=== PATIENT | female | born 1935 | race Caucasian/White ===

== ENCOUNTER 2019-07-04 14:05 | Inpatient (IN) ==
--- NOTE | 2019-07-04 14:22 | CT Scan Report ---
HEAD CT NONCONTRAST CT DOSE: 1074.96 mGy.cm HISTORY: Aphasia. Confusion. Stroke evaluation TECHNIQUE: Multiaxial CT images of the head were performed without the use of intravenous contrast. A utomated exposure control was utilized for this study. A dose lowering technique was utilized adheri ng to the principles of ALARA. Comparison: None. Findings: The paranasal sinuses and mastoid air cells are clear. The calvarium and skull base are int act. There is no mass, hematoma, midline shift, acute infarct. White matter hypodensity is nonspecifi c but suggestive of microvascular ischemic change. The ventricles and sulci demonstrate mild age-rela saurabh involutional changes. Encephalomalacia seen within the right frontotemporal and parietal regions consistent with an old MCA territory infarct. Impression: 1. No acute intracranial abnormality. 2. Old right MCA territory infarct. ACT 112: Negative or not required by law. Electronically signed by: Cesar Noland M.D. 07/04/2019 2:21 PM
--- NOTE | 2019-07-04 14:31 | Emergency Department Note ---
History of Present Illness General Chief complaint: Stroke Alert Time Seen by Provider: 07/04/19 14:09 History of Present Illness Provider complaint: Altered mental status Onset (ago): hour(s) 3 Location: head 84-year-old female presents via [facility] from home for altered mental status. Per [facility], the patient lives at home with her twin sister and his 24-hour assisted living care. At 1150 it was noticed that she is having difficulty speaking and was more confused. Code stroke was called from the field. Patient does have a history of stroke approximately 4 months ago. She is on Eliquis. Home Medications Home Medications Medication Instructions Recorded Confirmed Type apixaban [Eliquis] 2.5 mg PO BID 07/04/19 07/04/19 History aspirin 81 mg PO QAM 07/04/19 07/04/19 History losartan 50 mg PO BID 07/04/19 07/04/19 History metoprolol tartrate 25 mg PO BID 07/04/19 07/04/19 History timolol maleate 1 drp OPB QA 07/04/19 07/04/19 History Allergies Allergy/AdvReac Type Severity Reaction Status Date / Time No Known Allergies Allergy Unverified 07/04/19 15:23 Past Med/Surg History Medical History (Updated 07/04/19 @ 15:42 by Zach Whitman) Broken arm CVA (cerebral vascular accident) HLD (hyperlipidemia) HTN (hypertension) Social History Feels Safe at Home: Yes Smoking Status: Unknown if ever smoked Review of Systems Unobtainable due to cognitive status Physical Exam Vital Signs Vital Signs - 24 hr 07/04/19 14:09 07/04/19 14:18 07/04/19 14:23 Temperature 37.0 C Temperature Source Rectal Pulse Rate 65 68 68 Pulse Rate from SpO2 Sensor 68 67 Respiratory Rate 24 24 21 Respiratory Effort / Characteristics Non-Labored Spontaneous Respiratory Depth Normal Respiratory Pattern Regular Blood Pressure 187/98 H 161/129 H Blood Pressure Mean 127 151 Blood Pressure Position Sitting Pulse Oximetry 95 96 97 Oxygen Delivery Method Room Air Nasal Cannula Nasal Cannula Oxygen Flow Rate 3 3 3 Sepsis Recent Fever Within 48 Hours No Sepsis New/Unexplained Change in Mental Status No Sepsis Action Taken by Nursing No Action Required 07/04/19 14:27 07/04/19 14:30 07/04/19 14:31 Temperature Temperature Source Pulse Rate 64 70 66 Pulse Rate from SpO2 Sensor 64 66 Respiratory Rate 23 22 26 H Respiratory Effort / Characteristics Respiratory Depth Respiratory Pattern Blood Pressure 182/89 H 176/96 H Blood Pressure Mean 112 119 Blood Pressure Position Pulse Oximetry 95 Oxygen Delivery Method Room Air Oxygen Flow Rate Sepsis Recent Fever Within 48 Hours Sepsis New/Unexplained Change in Mental Status Sepsis Action Taken by Nursing 07/04/19 14:40 07/04/19 14:46 07/04/19 15:10 Temperature Temperature Source Pulse Rate 66 63 66 Pulse Rate from SpO2 Sensor 67 64 Respiratory Rate 23 39 H 33 H Respiratory Effort / Characteristics Respiratory Depth Respiratory Pattern Blood Pressure 176/88 H Blood Pressure Mean 116 Blood Pressure Position Pulse Oximetry 93 97 Oxygen Delivery Method Room Air Room Air Room Air Oxygen Flow Rate Sepsis Recent Fever Within 48 Hours Sepsis New/Unexplained Change in Mental Status Sepsis Action Taken by Nursing 07/04/19 15:12 07/04/19 15:15 07/04/19 15:16 Temperature Temperature Source Pulse Rate 63 61 Pulse Rate from SpO2 Sensor 61 Respiratory Rate 41 H 27 H Respiratory Effort / Characteristics Respiratory Depth Respiratory Pattern Blood Pressure 153/82 H 176/78 H Blood Pressure Mean 99 93 Blood Pressure Position Pulse Oximetry 99 Oxygen Delivery Method Room Air Nasal Cannula Nasal Cannula Oxygen Flow Rate 3 3 Sepsis Recent Fever Within 48 Hours Sepsis New/Unexplained Change in Mental Status Sepsis Action Taken by Nursing Physical Exam EYES: Conjunctivae and EOM are normal. Pupils are equal, round, and reactive to light. Right eye exhibits no discharge. Left eye exhibits no discharge. No scleral icterus. NECK: Normal range of motion. Neck supple. No JVD present. CV: Normal rate, regular rhythm, normal heart sounds and intact distal pulses. There is no peripheral edema. Palpable radial pulses bue. PULM/CHEST: Rhonchi bilaterally. -Chest Wall: She exhibits no tenderness. ABD: The abdomen is soft. Bowel sounds are normal. She has no distension. No mass is present. There is no tenderness. There is no rebound, no guarding, no Levine's sign and no tenderness at McBurney's point. Rovsig negative MUSC/SKEL: Left upper extremity is in sling. NEURO: Patient is having intermittent expressive aphasia but then in intermi ttently starts making nonsensical conversation. No facial droop. Patient is unable to follow commands. Course Course 1415: The patient was evaluated in room B1. Patient was seen on the helicopter pad immediately after departing the helicopter. Patient was taken immediately CAT scan and stroke protocol was initiated. CT of the head viewed by me did not show any large intracerebral hemorrhage. Patient is not a TPA candidate given she is on Eliquis and her recent stroke. Discussed the findings with Susi tele-stroke and I explained to them that I think her symptoms could be more of an infectious/metabolic syndrome for her altered mental status. The patient has a note from family requesting that her sodium be checked. Susi tele-stroke stated that if aphasia is present and no infectious/metabolic source can be found a CTA of the head and neck could be performed to rule out occlusive stroke. 1448: Vital signs stable. Patient is moving all her extremities. CT of the head within normal limits. Labs show no leukocytosis. Urine dip does not appear to be infectious. [id number] i-STAT within normal limits. Given this we will follow the suggestion from tele-stroke and obtain CTA of her head and neck. 1539: Vital signs stable. CTA of the head and neck are negative for occlusion. Patient does have elevated troponin and mildly elevated lactic acid level. Patient will be admitted to the hospital service. [facility] hospitalist made aware of the patient. 1551: Vital signs stable. Urinalysis does show possible infection with 30 white blood cells which could be causing the altered mental status and elevated lactic acid level. Patient be treated with Rocephin 1 g. Patient will be admitted to [facility] hospital service. Discussed with COURTNEY Manley who stated to admit to Dr. Vanessa. Administered Medications Sodium Chloride (Nss 1000ml) 1,000 mls @ 125 mls/hr IV .Q8H DANUTA Stop: 08/03/19 15:29 Last Admin: 07/04/19 15:32 Dose: 125 mls/hr Documented by: [id number] Ioversol (Optiray 320 125ml) 115 ml IV ONCE PRN PRN Reason: Interaction Checking Stop: 07/08/19 15:01 Last Admin: 07/04/19 15:03 Dose: 115 ml Documented by: [id number] Medical Decision Making Laboratory Data Result diagrams: 07/04/19 14:25 07/04/19 14:25 Lab Results 07/04/19 07/04/19 07/04/19 Range/Units 14:25 14:25 14:25 WBC 8.66 (4.8-10.8) K/uL RBC 3.71 L (4.2-5.4) M/uL Hgb 12.6 (12.0-16.0) g/dL POC Hgb (12.0-16.0) g/dl Hct 39.4 (37-47) % POC Hct (37-47) % MCV 106.2 H (80-100) fL MCH 34.0 (25-34) pg MCHC 32.0 (32-36) g/dL RDW Std Deviation 63.7 H (36.4-46.3) fL RDW Coeff of Brii 17.1 H (11.5-14.5) % Plt Count 285 (130-400) K/uL MPV 10.3 (7.4-10.4) fL Immature Gran % (Auto) 0.2 % Neut % (Auto) 73.0 % Lymph % (Auto) 15.9 % Millard % (Auto) 9.9 % Eos % (Auto) 0.9 % Baso % (Auto) 0.1 % Immature Gran # (Auto) 0.02 (0.00-0.02) K/uL Neut # (Auto) 6.31 (1.4-6.5) K/uL Lymph # (Auto) 1.38 (1.2-3.4) K/uL Millard # (Auto) 0.86 H (0.11-0.59) K/uL Eos # (Auto) 0.08 (0-0.5) K/uL Baso # (Auto) 0.01 (0-0.2) K/uL PT 14.0 H (9.0-12.0) Seconds INR 1.3 H (0.9-1.1) APTT 27.5 (21.0-31.0) Seconds PTT Ratio 1.0 VBG pH (7.36-7.41) VBG pCO2 (38-50) mmHg VBG pO2 mmHg VBG HCO3 mmol/L VBG O2 Saturation % VBG Base Excess mEq/L Barometric Pressure mm/Hg POC Sodium (135-144) mmol/L Sodium (136-145) mmol/L POC Potassium (3.3-5.0) mmol/L Potassium (3.5-5.1) mmol/L POC Chloride (101-112) mmol/L Chloride (98-107) mmol/L Carbon Dioxide (21-32) mmol/L POC Total CO2 (24-31) mmol/L Anion Gap (3-11) POC Anion Gap (16-25) mmol/L POC BUN (7-18) mg/dl BUN (7-18) mg/dl Creatinine (0.6-1.2) mg/dl POC Creatinine (0.6-1.3) mg/dl Est Cr Clr Drug Dosing ml/min Est GFR ( Amer) Est GFR (Non-Af Amer) BUN/Creatinine Ratio (10-20) Glucose (70-99) mg/dl POC Glucose (other) (70-99) mg/dl Lactate (0.4-2.0) mmol/L Calcium (8.5-10.1) mg/dl POC Ioniz Calcium Gustabo (1.12-1.32) mmol/l Magnesium (1.8-2.4) mg/dl Total Bilirubin (0.2-1) mg/dl AST (15-37) U/L ALT (12-78) U/L Alkaline Phosphatase (45-117) U/L Ammonia (11-32) umol/L Troponin I (0-0.045) ng/ml Total Protein (6.4-8.2) gm/dl Albumin (3.4-5.0) gm/dl Globulin (2.5-4.0) gm/dl Albumin/Globulin Ratio (0.9-2) Urine Color Urine Appearance (Clear) Urine pH (4.5-7.5) Ur Specific [place] (1.000-1.030) Urine Protein (Negative) Urine Glucose (UA) (Negative) Urine Ketones (Negative) Urine Blood (Negative) Urine Nitrite (Negative) Urine Bilirubin (Negative) Urine Urobilinogen (Negative) Ur Leukocyte Esterase (Negative) Urine WBC (Auto) (0-5) /hpf Urine RBC (Auto) (0-4) /hpf U Hyaline Cast (Auto) (0-5) /lpf U Epithel Cells (Auto) (0-5) /lpf Urine Bacteria (Auto) (Negative) Amorphous Sediment (None Prsent) Blood Type O Positive Antibody Screen NEGATIVE 07/04/19 07/04/19 07/04/19 Range/Units 14:25 14:25 14:25 WBC (4.8-10.8) K/uL RBC (4.2-5.4) M/uL Hgb (12.0-16.0) g/dL POC Hgb (12.0-16.0) g/dl Hct (37-47) % POC Hct (37-47) % MCV (80-100) fL MCH (25-34) pg MCHC (32-36) g/dL RDW Std Deviation (36.4-46.3) fL RDW Coeff of Brii (11.5-14.5) % Plt Count (130-400) K/uL MPV (7.4-10.4) fL Immature Gran % (Auto) % Neut % (Auto) % Lymph % (Auto) % Millard % (Auto) % Eos % (Auto) % Baso % (Auto) % Immature Gran # (Auto) (0.00-0.02) K/uL Neut # (Auto) (1.4-6.5) K/uL Lymph # (Auto) (1.2-3.4) K/uL Millard # (Auto) (0.11-0.59) K/uL Eos # (Auto) (0-0.5) K/uL Baso # (Auto) (0-0.2) K/uL PT (9.0-12.0) Seconds INR (0.9-1.1) APTT (21.0-31.0) Seconds PTT Ratio VBG pH 7.43 H (7.36-7.41) VBG pCO2 40 (38-50) mmHg VBG pO2 25 mmHg VBG HCO3 26 mmol/L VBG O2 Saturation < 60.0 % VBG Base Excess 1.5 mEq/L Barometric Pressure 733.3 mm/Hg POC Sodium (135-144) mmol/L Sodium 144 (136-145) mmol/L POC Potassium (3.3-5.0) mmol/L Potassium 4.0 (3.5-5.1) mmol/L POC Chloride (101-112) mmol/L Chloride 109 H (98-107) mmol/L Carbon Dioxide 23 (21-32) mmol/L POC Total CO2 (24-31) mmol/L Anion Gap 12.0 H (3-11) POC Anion Gap (16-25) mmol/L POC BUN (7-18) mg/dl BUN 34 H (7-18) mg/dl Creatinine 1.14 (0.6-1.2) mg/dl POC Creatinine (0.6-1.3) mg/dl Est Cr Clr Drug Dosing 25.4 ml/min Est GFR ( Amer) 50.4 Est GFR (Non-Af Amer) 43.5 BUN/Creatinine Ratio 29.6 H (10-20) Glucose 138 H (70-99) mg/dl POC Glucose (other) (70-99) mg/dl Lactate 2.5 H* (0.4-2.0) mmol/L Calcium 9.5 (8.5-10.1) mg/dl POC Ioniz Calcium Gustabo (1.12-1.32) mmol/l Magnesium 2.4 (1.8-2.4) mg/dl Total Bilirubin 2.0 H (0.2-1) mg/dl AST 78 H (15-37) U/L ALT 102 H (12-78) U/L Alkaline Phosphatase 163 H (45-117) U/L Ammonia (11-32) umol/L Troponin I 0.086 H* (0-0.045) ng/ml Total Protein 7.0 (6.4-8.2) gm/dl Albumin 3.5 (3.4-5.0) gm/dl Globulin 3.5 (2.5-4.0) gm/dl Albumin/Globulin Ratio 1.0 (0.9-2) Urine Color Urine Appearance (Clear) Urine pH (4.5-7.5) Ur Specific [place] (1.000-1.030) Urine Protein (Negative) Urine Glucose (UA) (Negative) Urine Ketones (Negative) Urine Blood (Negative) Urine Nitrite (Negative) Urine Bilirubin (Negative) Urine Urobilinogen (Negative) Ur Leukocyte Esterase (Negative) Urine WBC (Auto) (0-5) /hpf Urine RBC (Auto) (0-4) /hpf U Hyaline Cast (Auto) (0-5) /lpf U Epithel Cells (Auto) (0-5) /lpf Urine Bacteria (Auto) (Negative) Amorphous Sediment (None Prsent) Blood Type Antibody Screen 05/07/04/19 07/04/19 Range/Units 14:25 14:30 14:35 WBC (4.8-10.8) K/uL RBC (4.2-5.4) M/uL Hgb (12.0-16.0) g/dL POC Hgb 13.9 (12.0-16.0) g/dl Hct (37-47) % POC Hct 41 (37-47) % MCV (80-100) fL MCH (25-34) pg MCHC (32-36) g/dL RDW Std Deviation (36.4-46.3) fL RDW Coeff of Brii (11.5-14.5) % Plt Count (130-400) K/uL MPV (7.4-10.4) fL Immature Gran % (Auto) % Neut % (Auto) % Lymph % (Auto) % Millard % (Auto) % Eos % (Auto) % Baso % (Auto) % Immature Gran # (Auto) (0.00-0.02) K/uL Neut # (Auto) (1.4-6.5) K/uL Lymph # (Auto) (1.2-3.4) K/uL Millard # (Auto) (0.11-0.59) K/uL Eos # (Auto) (0-0.5) K/uL Baso # (Auto) (0-0.2) K/uL PT (9.0-12.0) Seconds INR (0.9-1.1) APTT (21.0-31.0) Seconds PTT Ratio VBG pH (7.36-7.41) VBG pCO2 (38-50) mmHg VBG pO2 mmHg VBG HCO3 mmol/L VBG O2 Saturation % VBG Base Excess mEq/L Barometric Pressure mm/Hg POC Sodium 143 (135-144) mmol/L Sodium (136-145) mmol/L POC Potassium 4.2 (3.3-5.0) mmol/L Potassium (3.5-5.1) mmol/L POC Chloride 109 (101-112) mmol/L Chloride (98-107) mmol/L Carbon Dioxide (21-32) mmol/L POC Total CO2 22 L (24-31) mmol/L Anion Gap (3-11) POC Anion Gap 17.0 (16-25) mmol/L POC BUN 32 H (7-18) mg/dl BUN (7-18) mg/dl Creatinine (0.6-1.2) mg/dl POC Creatinine 0.9 (0.6-1.3) mg/dl Est Cr Clr Drug Dosing ml/min Est GFR ( Amer) Est GFR (Non-Af Amer) BUN/Creatinine Ratio (10-20) Glucose (70-99) mg/dl POC Glucose (other) 137 H (70-99) mg/dl Lactate (0.4-2.0) mmol/L Calcium (8.5-10.1) mg/dl POC Ioniz Calcium Gustabo 1.19 (1.12-1.32) mmol/l Magnesium (1.8-2.4) mg/dl Total Bilirubin (0.2-1) mg/dl AST (15-37) U/L ALT (12-78) U/L Alkaline Phosphatase (45-117) U/L Ammonia < 10.0 L (11-32) umol/L Troponin I (0-0.045) ng/ml Total Protein (6.4-8.2) gm/dl Albumin (3.4-5.0) gm/dl Globulin (2.5-4.0) gm/dl Albumin/Globulin Ratio (0.9-2) Urine Color Dark Yellow Urine Appearance Cloudy A (Clear) Urine pH 5.0 (4.5-7.5) Ur Specific [place] 1.025 (1.000-1.030) Urine Protein 3+ H (Negative) Urine Glucose (UA) Negative (Negative) Urine Ketones Trace H (Negative) Urine Blood Negative (Negative) Urine Nitrite Negative (Negative) Urine Bilirubin Negative (Negative) Urine Urobilinogen Negative (Negative) Ur Leukocyte Esterase Trace H (Negative) Urine WBC (Auto) >30 H (0-5) /hpf Urine RBC (Auto) 0-4 (0-4) /hpf U Hyaline Cast (Auto) 1-5 (0-5) /lpf U Epithel Cells (Auto) 0-5 (0-5) /lpf Urine Bacteria (Auto) Negative (Negative) Amorphous Sediment Present A (None Prsent) Blood Type Antibody Screen Imaging Data Radiologist's Impression: HEAD & NECK CTA HISTORY: Confusion. Aphasia. stroke TECHNIQUE: Multiaxial CT images of the head were performed following the intravenous administration of contrast to evaluate the major cerebral vessels. Multiaxial CT images of the neck were also performed following the intravenous administration of contrast to evaluate the major cervical vessels. Maximum intensity projection images were also obtained. A dose lowering technique was utilized adhering to the principles of ALARA. COMPARISON: Head CT 07/04/2019. FINDINGS: There is no mass, hematoma, midline shift, or acute infarct. Visualized intracranial internal carotid arteries, distal vertebral arteries, and basilar artery are widely patent. There is no significant stenosis, occlusion, or aneurysm seen within the bilateral ACAs, MCAs, or pit hand. The major dural venous sinuses appear patent. Moderate calcified plaque within the bilateral carotid siphons. The aortic arch and proximal great vessels are widely patent. There is no significant stenosis, occlusion, or dissection identified within the bilateral common carotid, internal carotid, or vertebral arteries. Moderate bilateral pleural effusions with interlobular septal thickening and perihilar groundglass densities consistent with pulmonary edema. Moderate right and mild left carotid bifurcation calcification. IMPRESSION: 1. No significant stenosis, occlusion, or aneurysm within the [place]. 2. No significant stenosis, occlusion, or dissection identified within the carotid or vertebral arteries.. 3. Pulmonary edema with moderate bilateral pleural effusions. ACT 112: Negative or not required by law. Electronically signed by: Cesar Noland M.D. 07/04/2019 3:35 PM Dictated: 07/04/19 1519 Transcribed: 07/04/19 1519 XR chest 1V portable CLINICAL HISTORY: 84 years-old Female presenting with ams. TECHNIQUE: Portable upright AP view of the chest was obtained. COMPARISON: None. FINDINGS: Atherosclerosis of the aortic arch. Cardiac silhouette enlarged. Mild pulmonary vascular and interstitial prominence. Hazy right perihilar and basilar predominant opacity. Left greater than right pleural effusions. Obscuration of the left hemidiaphragm. No pneumothorax.. Degenerative changes of the thoracic s pine. Chronic displaced mildly comminuted fracture of the left humeral neck. Osteopenia. Upper abdomen normal. IMPRESSION: 1. Cardiomegaly with suspected volume overload and congestive change. 2. Bibasilar opacities right greater than left. The appearance raises concern for pulmonary edema. Underlying infection or aspiration not excluded. 3. Bilateral pleural effusions with suspected left basilar atelectasis. 4. Chronic displaced left humeral neck fracture. ACT 112: Negative or not required by law. Electronically signed by: Sukh Meraz M.D. 07/04/2019 2:57 PM Dictated: 07/04/19 1456 Transcribed: 07/04/[address] DOSE: 1074.96 mGy.cm HISTORY: Aphasia. Confusion. Stroke evaluation TECHNIQUE: Multiaxial CT images of the head were performed without the use of intravenous contrast. Automated exposure control was utilized for this study. A dose lowering technique was utilized adhering to the principles of ALARA. Comparison: None. Findings: The paranasal sinuses and mastoid air cells are clear. The calvarium and skull base are intact. There is no mass, hematoma, midline shift, acute infarct. White matter hypodensity is nonspecific but suggestive of microvascular ischemic change. The ventricles and sulci demonstrate mild age-related invol utional changes. Encephalomalacia seen within the right frontotemporal and parietal regions consistent with an old MCA territory infarct. Impression: 1. No acute intracranial abnormality. 2. Old right MCA territory infarct. ACT 112: Negative or not required by law. Electronically signed by: Cesar Noland M.D. 07/04/2019 2:21 PM Dictated: 07/04/19 1414 Transcribed: 07/04/191413 ECG Data Rate (beats per minute): 69 Rhythm: + normal sinus ECG Intervals/blocks: + Normal QRS, + Normal DC and + Normal QT-c ECG ST segments: + Normal ST segments MDM Narrative 1415: The patient was evaluated in room B1. Patient was seen on the helicopter pad immediately after departing the helicopter. Patient was taken immediately CAT scan and stroke protocol was initiated. CT of the head viewed by me did not show any large intracerebral hemorrhage. Patient is not a TPA candidate given she is on Eliquis and her recent stroke. Discussed the findings with Susi tele-stroke and I explained to them that I think her symptoms could be more of an infectious/metabolic syndrome for her altered mental status. The patient has a note from family requesting that her sodium be checked. Susi tele-stroke stated that if aphasia is present and no infectious/metabolic source can be found a CTA of the head and neck could be performed to rule out occlusive stroke. 1448: Vital signs stable. Patient is moving all her extremities. CT of the head within normal limits. Labs show no leukocytosis. Urine dip does not appear to be infectious. [id number] i-STAT within normal limits. Given this we will follow the suggestion from tele-stroke and obtain CTA of her head and neck. 1539: Vital signs stable. CTA of the head and neck are negative for occlusion. Patient does have elevated troponin and mildly elevated lactic acid level. Patient will be admitted to the hospital service. [facility] hospitalist made aware of the patient. 1551: Vital signs stable. Urinalysis does show possible infection with 30 white blood cells which could be causing the altered mental status and elevated lactic acid level. Patient be treated with Rocephin 1 g. Patient will be admitted to [facility] hospital service. Discussed with COURTNEY Manley who stated to admit to Dr. Vanessa. Impression & Plan AMS (altered mental status), Elevated troponin, Lactic acidemia Discharge Plan Visit Data Chief Complaint: Stroke Alert ED Provider: Zach Whitman Discharge Problem: AMS (altered mental status), Elevated troponin, Lactic acidemia Forms Stand Alone Forms: [facility] Typeform Prescriptions Prescriptions: No Action losartan 50 mg tablet 50 mg PO BID RF: 0 aspirin 81 mg Tablet,Delayed Release (Dr/Ec) 81 mg PO QAM RF: 0 timolol maleate 0.5 % drops 1 drp OPB QAM RF: 0 metoprolol tartrate 25 mg tablet 25 mg PO BID RF: 0 Eliquis 2.5 mg tablet 2.5 mg PO BID RF: 0 Referrals Referrals: PCP,NO [Primary Care Provider] - Discharge Problem: AMS (altered mental status) Qualifiers: Altered mental status type: unspecified Qualified Code(s): R41.82 - Altered mental status, unspecified
[2019-07-04 14:36] LABS: Basophils # (auto) 0.01 K/uL (0-0.2); Basophils % (auto) 0.1 %; Eosinophils # (auto) 0.08 K/uL (0-0.5); Eosinophils % (auto) 0.9 %; Hematocrit (blood only) 39.4 % (37-47); Hemoglobin 12.6 g/dL (12.0-16.0); Immature Granulocytes # (auto) 0.02 K/uL (0.00-0.02); Immature Granulocytes % (auto) 0.2 %; Lymphocytes # (auto) 1.38 K/uL (1.2-3.4); Lymphocytes % (auto) 15.9 %; Mean Corpuscular Volume 106.2 fL (80-100); Mean Platelet Volume 10.3 fL (7.4-10.4); Monocytes # (auto) 0.86 K/uL (0.11-0.59); Monocytes % (auto) 9.9 %; Neutrophils # (auto) 6.31 K/uL (1.4-6.5); Platelet Count 285 K/uL (130-400); RDW Coefficient of Variation 17.1 % (11.5-14.5); RDW Standard Deviation 63.7 fL (36.4-46.3); Red Blood Count 3.71 M/uL (4.2-5.4); White Blood Count 8.66 K/uL (4.8-10.8)
[2019-07-04 14:38] LABS: Base Excess VBG 1.5 mEq/L; HCO3 VBG 26 mmol/L; PCO2 VBG 40 mmHg (38-50); PO2 VBG 25 mmHg; pH VBG 7.43 (7.36-7.41)
[2019-07-04 14:39] LABS: Oxygen Saturation VBG < 60.0 %
[2019-07-04 14:43] LABS: iSTAT Creatinine 0.9 mg/dl (0.6-1.3); iSTAT Hemoglobin 13.9 g/dl (12.0-16.0); iSTAT Ionized Calcium 1.19 mmol/l (1.12-1.32); iSTAT Potassium 4.2 mmol/L (3.3-5.0)
--- NOTE | 2019-07-04 14:59 | XRay Report ---
XR chest 1V portable CLINICAL HISTORY: 84 years-old Female presenting with ams. TECHNIQUE: Portable upright AP view of the chest was obtained. COMPARISON: None. FINDINGS: Atherosclerosis of the aortic arch. Cardiac silhouette enlarged. Mild pulmonary vascular and intersti tial prominence. Hazy right perihilar and basilar predominant opacity. Left greater than right pleura l effusions. Obscuration of the left hemidiaphragm. No pneumothorax.. Degenerative changes of the tho racic spine. Chronic displaced mildly comminuted fracture of the left humeral neck. Osteopenia. Upper abdomen normal. IMPRESSION: 1. Cardiomegaly with suspected volume overload and congestive change. 2. Bibasilar opacities right greater than left. The appearance raises concern for pulmonary edema. U nderlying infection or aspiration not excluded. 3. Bilateral pleural effusions with suspected left basilar atelectasis. 4. Chronic displaced left humeral neck fracture. ACT 112: Negative or not required by law. Electronically signed by: Sukh Meraz M.D. 07/04/2019 2:57 PM
[2019-07-04 15:01] LABS: INR 1.3 (0.9-1.1); Partial Thromboplastin Time 27.5 Seconds (21.0-31.0)
[2019-07-04 15:02] LABS: Albumin Level 3.5 gm/dl (3.4-5.0); BUN Creatinine Ratio 29.6 (10-20); Calcium 9.5 mg/dl (8.5-10.1); Creatinine Clr Calc Pharmacy 25.4 ml/min; Est GFR (African American) 50.4; Est GFR (Non-African American) 43.5; Magnesium 2.4 mg/dl (1.8-2.4)
[2019-07-04] MEDS ORDERED: OPTIRAY 320 125ml IV PRN (15:02)
[2019-07-04 15:08] LABS: Globulin 3.5 gm/dl (2.5-4.0); Troponin I 0.086 ng/ml (0-0.045)
[2019-07-04 15:27] LABS: Appearance Urine Cloudy (Clear); Bacteria Urine Automated Negative (Negative); Blood Urine Negative (Negative); Color Urine Dark Yellow; Epithelial Cell Urine Auto 0-5 /lpf (0-5); Glucose Urine UA Negative (Negative); Ketones Urine Trace (Negative); Leukocyte Esterase Urine Trace (Negative); Nitrite Urine Negative (Negative); Protein Urine 3+ (Negative); Specific Gravity Urine 1.025 (1.000-1.030); Urobilinogen Urine Negative (Negative); WBC Urine Automated >30 /hpf (0-5)
[2019-07-04] MEDS ORDERED: SODIUM CHLORIDE 0.9% 1000ML 1,000 ML IV SCH (15:30)
[2019-07-04 15:31] LABS: Bilirubin Urine Negative (Negative); Ictotest Urine Negative (Negative)
--- NOTE | 2019-07-04 15:36 | CT Scan Report ---
HEAD & NECK CTA HISTORY: Confusion. Aphasia. stroke TECHNIQUE: Multiaxial CT images of the head were performed following the intravenous administration o f contrast to evaluate the major cerebral vessels. Multiaxial CT images of the neck were also perform ed following the intravenous administration of contrast to evaluate the major cervical vessels. Maxim um intensity projection images were also obtained. A dose lowering technique was utilized adhering to the principles of ALARA. COMPARISON: Head CT 07/04/2019. FINDINGS: There is no mass, hematoma, midline shift, or acute infarct. Visualized intracranial internal carotid arteries, distal vertebral arteries, and basilar artery are widely patent. There is no significant s tenosis, occlusion, or aneurysm seen within the bilateral ACAs, MCAs, or bulldogger. The major dural venous sinuses appear patent. Moderate calcified plaque within the bilateral carotid siphons. The aortic arch and proximal great vessels are widely patent. There is no significant stenosis, occ lusion, or dissection identified within the bilateral common carotid, internal carotid, or vertebral arteries. Moderate bilateral pleural effusions with interlobular septal thickening and perihilar grou ndglass densities consistent with pulmonary edema. Moderate right and mild left carotid bifurcation c alcification. IMPRESSION: 1. No significant stenosis, occlusion, or aneurysm within the [place] of [place]. 2. No significant stenosis, occlusion, or dissection identified within the carotid or vertebral arter ies.. 3. Pulmonary edema with moderate bilateral pleural effusions. ACT 112: Negative or not required by law. Electronically signed by: Cesar Noland M.D. 07/04/2019 3:35 PM
--- NOTE | 2019-07-04 15:36 | CT Scan Report ---
HEAD & NECK CTA HISTORY: Confusion. Aphasia. stroke TECHNIQUE: Multiaxial CT images of the head were performed following the intravenous administration o f contrast to evaluate the major cerebral vessels. Multiaxial CT images of the neck were also perform ed following the intravenous administration of contrast to evaluate the major cervical vessels. Maxim um intensity projection images were also obtained. A dose lowering technique was utilized adhering to the principles of ALARA. COMPARISON: Head CT 07/04/2019. FINDINGS: There is no mass, hematoma, midline shift, or acute infarct. Visualized intracranial internal carotid arteries, distal vertebral arteries, and basilar artery are widely patent. There is no significant s tenosis, occlusion, or aneurysm seen within the bilateral ACAs, MCAs, or signing agent. The major dural venous sinuses appear patent. Moderate calcified plaque within the bilateral carotid siphons. The aortic arch and proximal great vessels are widely patent. There is no significant stenosis, occ lusion, or dissection identified within the bilateral common carotid, internal carotid, or vertebral arteries. Moderate bilateral pleural effusions with interlobular septal thickening and perihilar grou ndglass densities consistent with pulmonary edema. Moderate right and mild left carotid bifurcation c alcification. IMPRESSION: 1. No significant stenosis, occlusion, or aneurysm within the [place] of [place]. 2. No significant stenosis, occlusion, or dissection identified within the carotid or vertebral arter ies.. 3. Pulmonary edema with moderate bilateral pleural effusions. ACT 112: Negative or not required by law. Electronically signed by: Cesar Noland M.D. 07/04/2019 3:35 PM
[2019-07-04 15:40] LABS: RBC Urine Automated 0-4 /hpf (0-4)
[2019-07-04 15:41] LABS: Amorphous Sediment Urine Present (None Prsent)
[2019-07-04] MEDS ORDERED: cefTRIAXone SODIUM 1,000 MG/50 ML BAG IV STA (15:46)
--- NOTE | 2019-07-04 17:00 | History & Physical Report ---
Date of Service July 04, 2019 Assessment & Plan (1) Encephalopathy: Patient presents encephalopathy which could be toxic from recent lorazepam use at home according to the family be metabolic from aspiration pneumonia or urinary tract infection present on admission as she has had preceding symptoms at home. Patient will be given Zosyn therapy blood cultures and urine cultures will be sent no further benzodiazepines abuse if able. If chemical restraints are needed we may consider antipsychotic medication such as Haldol or Zyprexa (2) CVA (cerebral vascular accident): Initial concern for recurrent stroke may have been clouded by administration of lorazepam at home. Patient has no acute stroke seen on initial imaging nor aneurysm or occlusion seen on angiogram. Patient is maintained on aspirin 81 a day metoprolol and losartan. Interestingly why the patient is on a statin therapy at this time considerations for high potency statin will be undertaken. Reimaging of the patient versus MRI scan should be considered however her cooperation MRI scan is a question at this time and subsequent reimaging by CAT scan could be undertaken in 24 hours (3) Elevated troponin: Elevated troponin level with concern for history of congestive changes seen on chest x-ray and CAT scan patient given 1 dose of Lasix trending troponins providing aspirin continue her metoprolol and obtaining echocardiogram unless one was recently done within the system of [place] (4) Lactic acidemia: Multifactorial possibly from infectious or possibly could be from con gestive change seen on imaging if associate hypoxia was present there is no recorded hypoxia and her facility however the patient's been on oxygen therapy (5) Humerus fracture: Reportedly sustained a proximal left humeral fracture with her stroke on June 01. The fragments appear to be significant there is no significant callus formation to my eye. Will provide a sling once patient is more cooperative and consider orthopedic consultation once patient more cooperative (6) Congestive heart failure: As mentioned above suggested by imaging study echocardiogram will be obtained patient does have a history of hypertension and this may be diastolic (7) Aspiration pneumonia: Reportedly patient has a history of swallowing difficulties at home typically with crushed medications and taking pudding. Speech evaluation undertaken especially with right lower lobe changes seen on x-ray patient is on Zosyn therapy to cover any infectious etiologies although currently her white blood cell count is low (8) DVT prophylaxis: Patient is on Eliquis 2.5 twice daily this is maintained (9) HTN (hypertension): Patient typically on metoprolol 25 twice daily and losartan 50 a day History of Present Illness Primary Care Provider: NO PCP 84-year-old female brought in by EMS for concerns of strokelike symptoms. Apparently the patient was flown to [facility] June 01 for large MCA territory stroke. According to the family the patient had some type of procedure which may be an embolectomy but eventually was sent to rehab at [facility]. During her time at the rehab center she reportedly had problems with volume overload and swelling, low blood sodium, and urinary tract infections. According to the family member the patient return to home on June 30. Since June 30 the patient was complaining of frequent urinations and the family is having difficulty caring for her. Subsequently the family asked for home care nurse to be provided but a hospice nurse showed up instead. Apparently today the hospice nurse felt the patient may be having some anxiety and she was given Ativan. Patient subsequently developed worsening mental state and was difficult to difficult to control at home. The patient suffered a proximal humeral fracture with her stroke in June 01 and she was having difficulty with pain at the site. 911 was summoned and due to the patient's mental changes and recent stroke concerns for recurrent stroke were undertaken. According to the family there was some discussion about where they should go and initially were considering summoning a air transport to the scene. Reportedly whether postponed air ambulance transport and the patient was in route to the airport in [facility] to possibly meet the air ambulance there. As the patient was with concern for stroke and not any is a certified stroke center the patient was then brought to our facility where she was seen in the emergency department. Initial evaluation was nonfocal with exception of her fractured left arm being diminished and movement patient underwent CT scan of her head and a CT angiogram of her head which were unremarkable with exception of her old MCA territory stroke chest x-ray with a mild right okay right lower lobe infiltrate and equivocal urinalysis by straight cath. I phone the family which got her [id number] Bria and she relayed the story to me she also relayed to me that the patient typically sees Dr. Kennedy at [facility] and typically goes to [facility] to see [facility]. The family also confirmed the patient is a DNR they provided the following phone numbers for ease of contact Noemi Romano [phone] alternate [phone] Juan Antonio cell phone [phone] Allergies Allergy/AdvReac Type Severity Reaction Status Date / Time No Known Allergies Allergy Unverified 07/04/19 15:23 Home Medications Home Medications Medication Instructions Recorded Confirmed Type apixaban [Eliquis] 2.5 mg PO BID 07/04/19 07/04/19 History aspirin 81 mg PO QAM 07/04/19 07/04/19 History losartan 50 mg PO BID 07/04/19 07/04/19 History metoprolol tartrate 25 mg PO BID 07/04/19 07/04/19 History timolol maleate 1 drp OPB QAM 07/04/19 07/04/19 History Past Med/Surg History Medical History (Updated 07/04/19 @ 16:59 by Joe Greene MD) Broken arm CVA (cerebral vascular accident) HLD (hyperlipidemia) HTN (hypertension) Family History (Updated 07/04/19 @ 16:48 by Joe Greene MD) Father Hypertension Coronary heart disease Social History Feels Safe at Home: Yes Smoking Status: Unknown if ever smoked Review of Systems Review of Systems: Unobtainable due to cognitive status Physical Exam Physical Exam: The patient appeared well confused and not following commands Vital signs as documented. She is hypertensive although listed as tachypneic is from agitation Head exam is normocephalic atraumatic no scleral icterus Neck is without JVD, thyromegaly, or carotid bruits. Lungs are clear to auscultation, no focal loss of breath sounds Cardiac exam, Rhythm is regular.. No murmurs, rubs or gallops. Abdominal exam reveals normal bowel sounds, soft non tender, no masses Extremities ecchymosis to the proximal left arm with deformity and decreased mobility Neurologic exam is alert and conversant but not oriented, she has limited use to her left arm Skin is without rashes bruising noted to left upper arm Results & Data Results & Data ([facility]) Vital Signs (Past 12 Hours) Vital Signs CT head 07/04/2019 no acute intracranial abnormality old right MCA territory infarct CT angiogram head and neck 07/04/2019 no significant stenosis occlusion or ane urysm of the [place] of [place] carotid or vertebral arteries pulmonary edema with moderate bilateral pleural effusions are seen Chest x-ray 07/04/2019 cardiomegaly with suspected volume overload and congestive change bilateral opacities right greater than left raises concerns for asymmetric pulmonary edema underlying infection or aspiration not excluded bilateral effusions left basilar atelectasis chronic displaced left humeral fracture EKG shows sinus rhythm poor R wave progression Temp Pulse Resp BP Pulse Ox 07/04/19 15:50 63 35 H 100 07/04/19 15:45 64 23 181/88 H 100 07/04/19 15:40 62 17 100 07/04/19 15:31 63 29 H 100 07/04/19 15:30 58 L 7 L 176/78 H 100 07/04/19 15:20 56 L 19 100 07/04/19 15:16 59 L 20 99 07/04/19 15:15 61 27 H 176/78 H 99 07/04/19 15:12 63 41 H 153/82 H 07/04/19 15:10 66 33 H 07/04/19 14:46 63 39 H 176/88 H 97 07/04/19 14:40 66 23 93 07/04/19 14:31 66 26 H 07/04/19 14:30 70 22 176/96 H 07/04/19 14:27 64 23 182/89 H 95 07/04/19 14:23 68 21 97 07/04/19 14:18 68 24 161/129 H 96 07/04/19 14:09 98.6 F 65 24 187/98 H 95 Code Status & VTE Plan VTE Prophylaxis Plan VTE Prophylaxis will be ordered: No PG Care Time/CCT Total # of Minutes Spent Total Time Spent with Patient: Total time spent is greater than 50% in coordination of care (as documented) at patient's floor/unit and/or counseling patient: Coding Level of Care Code 29649 Initial Inpt Care Lvl 3 Diagnoses Encephalopathy G93.40 CVA (cerebral vascular accident) I63.9 Elevated troponin R79.89 Lactic acidemia E87.2 Humerus fracture S42.309A Congestive heart failure I50.9 Aspiration pneumonia J69.0 DVT prophylaxis Z29.9 HTN (hypertension) I10
[2019-07-04] MEDS ORDERED: PIPERACILL/TAZOBAC CONSULT ACTIVE PRN (17:14)
[2019-07-04] MEDS ORDERED: FUROSEMIDE 40 MG/4 ML VIAL IV STA (17:14)
[2019-07-04] MEDS ORDERED: ONDANSETRON INJ 2 MG/ML 2 ML VIAL IV PRN (17:14)
[2019-07-04] MEDS ORDERED: FUROSEMIDE 40 MG in SYRINGE 0 ML IV ONE (17:30)
[2019-07-04] MEDS ORDERED: FUROSEMIDE 20 MG in SYRINGE 0 ML IV ONE (17:30)
[2019-07-04] MEDS ORDERED: PIPERACILLIN/TAZOBACTAM 3.375 GM in DEXTROSE 5% 100 ML IV ONE (17:30)
--- NOTE | 2019-07-04 19:49 | Electrocardiogram Report ---
Test Reason : Blood Pressure : / mmHG Vent. Rate : 069 BPM Atrial Rate : 069 BPM P-R Int : 154 ms QRS Dur : 084 ms QT Int : 402 ms P-R-T Axes : 057 -38 097 degrees QTc Int : 430 ms Normal sinus rhythm Left axis deviation Poor R wave progression, consider anterior AK vs. lead placement vs. LVH Abnormal ECG No previous ECGs available Confirmed by Tadeo Coleman ([id number]) on 07/04/2019 7:49:17 PM Referred By: REFERRED SELF Confirmed By:Moncho Coleman
--- NOTE | 2019-07-04 19:52 | Hospitalist Progress Note ---
Date of Service July 04, 2019 Assessment & Plan (1) AMS (altered mental status): (2) Encephalopathy: Pt with reported AMS today. It is reported a nurse noted pt to be anxious at home and Ativan was given. Reported pt had altered mental status. In ER reported non-focal exam findings, had CT head and a CTA head which were unremarkable with exception of her old MCA territory stroke. CXR: Cardiomegaly with suspected volume overload and congestive change. Bibasilar opacities right greater than left. Bilateral pleural effusions. No leukocytosis, lactate: 2.5, troponin: 0.086, UA trace leuk esterace, >30 WBC without bacteria Was given Rocephin in ER She was started on Zosyn, Lasix 20mg IV x 1 dose (3) Elevated lactic acid level: (4) Elevated troponin: (5) CVA (cerebral vascular accident): Pt with recent acute ischemic right MCA stroke on 06/02/2019 and received TPA and was transferred to [facility]. At [facility] she had thrombectomy of right M2 occlusion. Pt on pureed diet, thin liquids, requires pills to be crushed -aspirin, eliquis, atorvastatin -NPO for now -aspiration precautions -Speech consult (6) Paroxysmal atrial fibrillation: Developed atrial fibrillation post op in 05/2019 Current sinus rhythm -Eliquis, metoprolol tartrate Admission and Anticipated Discharge Date Admission Date: July 04, 2019 Subjective Pt admitted by [facility] Hospitalist team. [facility] Further [facility] chart review: Patient with history fall on 05/25/2019, head outpatient x-ray on 05/28/2019 revealing left proximal humerus fracture. It is reported patient was to follow- up with [facility] outpatient (unsure if this was done) It is reported 06/02/2019 patient developed slurred speech, left-sided hemiparesis was taken to [facility] and was found to have acute ischemic right MCA stroke and received TPA and was transferred to [facility]. At [facility] she had thrombectomy of right M2 occlusion. She was hospitalized at [facility] 06/01-06/10/2019. Postop she developed atrial fibrillation, delirium, anxiety, poor appetite. She was initially started on aspirin. Her chlorthalidone was discontinued and she was started on mirtazapine for appetite. She was also started on atorvastatin 40 mg daily 06/09-06/14/2019 was transferred to [facility] for respite care. Chlorthalidone 25 mg was added, losartan was increased to 50 mg daily, patient was placed on Flexeril for left shoulder spasm. She has been on pured diet with thin liquids, crushed meds. She wearing a sling to left arm per Ortho recommendations. She required dose of IV Lasix secondary to shortness of breath, interstitial edema/pleural effusions. 06/14/2019-07/01/2019 was a [facility] rehab in [place], [place]. 06/17/2019 Eliquis was started. During admission patient developed hyponatremia (she was on HCTZ as a substitute for chlorthalidone). HCTZ was then discontinued and losartan was increased from 50 mg daily to twice daily. Metoprolol tartrate was increased from 25 mg daily to twice daily dosing. Sodium level was reported at 139 on 06/30/2019. Mirtazapine was discontinued during admission. Is reported patient with poor oral intake and required IVF. She was discharged from rehab on Eliquis 2.5 mg twice daily, aspirin 81 mg daily, losartan 50 mg twice daily, metoprolol tartrate 25 mg twice daily, MiraLAX twice daily, Senokot as twice daily, Tylenol as needed pain (It appears atorvastatin had dropped off patient's med list) Today it is reported pt having stroke like symptoms and was brought to [facility] ER. It is reported a nurse noted pt to be anxious at home and Ativan was given. Reported pt had altered mental status. In ER reported non-focal exam findings, had CT head and a CTA head which were unremarkable with exception of her old MCA territory stroke. CXR: Cardiomegaly with suspected volume overload and congestive change. Bibasilar opacities right greater than left. Bilateral pleural effusions. No leukocytosis, lactate: 2.5, troponin: 0.086, UA trace leuk esterace, >30 WBC without bacteria Was given Rocephin in ER She was started on Zosyn, Lasix 20mg IV x 1 dose Results & Data Results & Data ([facility]) Vital Signs (Past 12 Hours) Vital Signs Temp Pulse Pulse Resp BP BP Pulse Ox 07/04/19 19:22 36.3 C L 63 179/80 H 97 07/04/19 17:49 66 07/04/19 17:48 36.3 C L 66 18 177/87 H 95 07/04/19 15:50 63 35 H 100 07/04/19 15:45 64 23 181/88 H 100 07/04/19 15:40 62 17 100 07/04/19 15:31 63 29 H 100 07/04/19 15:30 58 L 7 L 176/78 H 100 07/04/19 15:20 56 L 19 100 07/04/19 15:16 59 L 20 99 07/04/19 15:15 61 27 H 176/78 H 99 07/04/19 15:12 63 41 H 153/82 H 07/04/19 15:10 66 33 H 07/04/19 14:46 63 39 H 176/88 H 97 07/04/19 14:40 66 23 93 07/04/19 14:31 66 26 H 07/04/19 14:30 70 22 176/96 H 07/04/19 14:27 64 23 182/89 H 95 07/04/19 14:23 68 21 97 07/04/19 14:18 68 24 161/129 H 96 07/04/19 14:09 37.0 C 65 24 187/98 H 95 (1) AMS (altered mental status) Altered mental status type: unspecified Qualified Code(s): R41.82 - Altered mental status, unspecified
[2019-07-04] MEDS ORDERED: ARTIFICIAL TEARS OP PRN (20:09)
--- NOTE | 2019-07-04 20:19 | Communication Note ---
Date of Service: July 04, 2019 Pt admitted by [facility] Hospitalist team. Found to have [facility] PCP and care transitioned to [facility] Hospitalist team Further outpatient chart review: Patient with history fall on 05/25/2019, head outpatient x-ray on 05/28/2019 revealing left proximal humerus fracture. It is reported patient was to follow- up with [facility] outpatient (unsure if this was done) It is reported 06/02/2019 patient developed slurred speech, left-sided hemiparesis was taken to [facility] and was found to have acute ischemic right MCA stroke and received TPA and was transferred to [facility]. At [facility] she had thrombectomy of right M2 occlusion. She was hospitalized at [facility] 06/01-06/10/2019. Postop she developed atrial fibrillation, delirium, anxiety, poor appetite. She was initially started on aspirin. Her chlorthalidone was discontinued and she was started on mirtazapine for appetite. She was also started on atorvastatin 40 mg daily 06/09-06/14/[address] [facility] for respite care. Chlorthalidone 25 mg was added, losartan was increased to 50 mg daily, patient was placed on Flexeril for left shoulder spasm. She has been on pured diet with thin liquids, crushed meds. She wearing a sling to left arm per Ortho recommendations. She required dose of IV Lasix secondary to shortness of breath, interstitial edema/pleural effusions. 06/14/2019-07/01/2019 was a [facility] rehab in [place], [place]. 06/17/2019 Eliquis was started. During admission patient developed hyponatremia (she was on HCTZ as a substitute for chlorthalidone). HCTZ was then discontinued and losartan was increased from 50 mg daily to twice daily. Metoprolol tartrate was increased from 25 mg daily to twice daily dosing. Sodium level was reported at 139 on 06/30/2019. Mirtazapine was discontinued during admission. Is reported patient with poor oral intake and required IVF. Her mirtazapine was discontinued. She was discharged from rehab on Eliquis 2.5 mg twice daily, aspirin 81 mg daily, losartan 50 mg twice daily, metoprolol tartrate 25 mg twice daily, MiraLAX twice daily, Senokot as twice daily, Tylenol as needed pain (It appears atorvastatin had dropped off patient's med list upon discharge) Today it is reported pt having stroke like symptoms and was brought to [facility] ER. It is reported a nurse noted pt to be anxious at home and Ativan was given. Reported pt had altered mental status. In ER reported non-focal exam findings, had CT head and a CTA head which were unremarkable with exception of her old MCA territory stroke. CXR: Cardiomegaly with suspected volume overload and congestive change. Bibasilar opacities right greater than left. Bilateral pleural effusions. No leukocytosis, lactate: 2.5, troponin: 0.086, UA trace leuk esterace, >30 WBC without bacteria Was given Rocephin in ER She was started on Zosyn for possible aspiration , Lasix 20mg IV x 1 dose I updated pt's home medication list -Added atorvastatin to home med list and hospital med lists for her recent CVA dx -Added Speech consult -Added ortho consult for pt's left humerus fracture, ordered sling to left arm if pt can tolerate -Continue Zosyn -Trend lactic acid -Blood cultures were drawn after initial antibiotics administered Attending Physician Addendum Pt was seen and examined. Agreed with Fadumo VALDEZ Plan. We will transfer care under our service. Continue IV abx with Zosyn for now. Follow up blood cx and urine cx. Ortho consult to eval for the left humerus fracture. Consider to repeat CT head if develops any focal neuro deficit. Speech eval and fall precaution. Will continue monitor. MD Kayla
[2019-07-04] MEDS: APIXABAN 2.5 MG TAB PO SCH (20:53)
[2019-07-04] MEDS: LOSARTAN POTASSIUM 50 MG TAB PO SCH (20:54)
[2019-07-04] MEDS ORDERED: METOPROLOL TARTRATE 25 MG TAB PO SCH (21:00)
[2019-07-04] MEDS: PIPERACILLIN/TAZOBACTAM 3.375 GM in DEXTROSE 5% 100 ML IV SCH (23:42)
--- NOTE | 2019-07-05 00:29 | Communication Note ---
Date of Service: July 05, 2019 Made aware by RN of transient bradycardic episode cardiac rate 39-58 on the monitor around 12:20 AM.. Patient asymptomatic as per RN. AP Asymptomatic bradycardia Decrease maintenance beta-patria dose. Will relay to AM provider.
[2019-07-05 07:26] LABS: Hematocrit (blood only) 41.8 % (37-47); Hemoglobin 13.5 g/dL (12.0-16.0); Mean Corpuscular Hgb Conc 32.3 g/dL (32-36); Mean Corpuscular Volume 105.3 fL (80-100); Mean Platelet Volume 10.5 fL (7.4-10.4); Platelet Count 276 K/uL (130-400); RDW Coefficient of Variation 16.8 % (11.5-14.5); Red Blood Count 3.97 M/uL (4.2-5.4); White Blood Count 8.88 K/uL (4.8-10.8)
[2019-07-05 07:54] LABS: Albumin Level 3.4 gm/dl (3.4-5.0); BUN Creatinine Ratio 25.7 (10-20); Calcium 9.5 mg/dl (8.5-10.1); Creatinine Clr Calc Pharmacy 25.5 ml/min; Est GFR (African American) 56.3; Est GFR (Non-African American) 48.6; Potassium 3.1 mmol/L (3.5-5.1)
[2019-07-05 07:57] LABS: Bilirubin Direct 0.9 mg/dl (0-0.2); Troponin I 0.09 ng/ml (0-0.045)
[2019-07-05 08:01] LABS: Magnesium 2.2 mg/dl (1.8-2.4); Phosphorus 3.3 mg/dl (2.5-4.9)
[2019-07-05] MEDS: PIPERACILLIN/TAZOBACTAM 3.375 GM in DEXTROSE 5% 100 ML IV SCH ×3 (08:21→23:26)
[2019-07-05] MEDS: TIMOLOL MALEATE 0.25% OP SOLN 5 ML BTL OPB SCH (08:21)
[2019-07-05] MEDS: LOSARTAN POTASSIUM 50 MG TAB PO SCH ×2 (08:22→21:25)
[2019-07-05] MEDS: ASPIRIN 81 MG ECTAB PO SCH (08:22)
[2019-07-05] MEDS: METOPROLOL TARTRATE 25 MG TAB PO SCH ×2 (08:22→21:25)
[2019-07-05] MEDS: APIXABAN 2.5 MG TAB PO SCH ×2 (08:22→21:24)
[2019-07-05] MEDS: ATORVASTATIN 40 MG TAB PO SCH (08:28)
--- NOTE | 2019-07-05 09:04 | Communication Note ---
Date of Service: July 04, 2I have received a consultation from concerning Mrs. Fuentes. Patient was initially admitted to [facility] service for evaluation of agitation confus ion and possible "strokelike symptoms". I reviewed Dr. Greene's extensive note which outlines her history in addition to other notes that were created after she was transferred from the [facility] service to [facility] service based in her primary care location which apparently is with [facility] in [place]. 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 She has had a left humeral fracture, has left hemiparesis apparently has issues with urinary tract infections and anxiety and was having urinary frequency received some lorazepam and became more confused to the point that emergency transfer to a hospital with stroke facilities was felt to be justified The assessment here has consisted of CT angiography studies showing no significant occlusion of the extracranial or intracranial vessels and a CT scan of the head showing the old middle cerebral artery infarction but no clear evidence for new stroke. It was felt that she had a metabolic or toxic encephalopathy rather than a new cva and the lorazepam was highly suspected as the culprit The [facility] service was considering an MRI but in light of the fact that the patient is already on Eliquis and aspirin and apparently has stabilized with the exception of some congestive heart failure symptoms, it was not clear that this diagnostic study would make any difference. Furthermore she is not in atrial fibrillation according to the single EKG I have to review Dr. Mejia and I have discussed the case. At this point unless the patient has clear cut new neurologic signs or is demonstrating paroxysmal atrial fibrillatio n then demonstration of a new CVA is an academic question more than a practical one. No change in the current anticoagulation clinical would be justified even if a new stroke were found. If alternatively she is going in and out of atrial fibrillation then demonstration of a new stroke might precipitate a change in anticoagulation from her current Eliquis to another novel anticoagulant or possibly to Coumadin Decision regarding MRI scan thus in my mind depends purely on the presence or absence of atrial fibrillation as only in this setting would a change in anticoagulation protocol be considered If there are family pressures to demonstrate the presence or absence of new stroke then a noncontrast MRI certainly might answer their questions as it is the only technology that would be able to detect subtle changes in brain structure that would not be demonstrable either clinically or by repeat CT scan but-as noted above- I do not think it would make any significant difference in her treatment in the absence of demonstrable atrial fibrillation I have discussed my impressions with Dr. Mejia. I do not think neurology actually needs to see this patient in formal consultation unless things would change clinically No charge will be rendered obviously for this evaluation unless a face to face patient encounter subsequently is required Mele Moss MD
--- NOTE | 2019-07-05 09:45 | Hospitalist Progress Note ---
Date of Service July 05, 2019 Assessment & Plan (1) AMS (altered mental status): (2) Encephalopathy: Pt with reported AMS. It is reported a nurse noted pt to be anxious at home and Ativan was given. Reported pt had altered mental status. Patient presents w/encephalopathy which could be toxic from recent lorazepam use at home according to the family, could be metabolic from aspiration pneumonia or urinary tract infection present on admission as she has had preceding symptoms at home. Patient will be given Zosyn therapy blood cultures and urine cultures will be sent no further benzodiazepines abuse if able. In ER reported non-focal exam findings, had CT head and a CTA head which were unremarkable with exception of her old MCA territory stroke. CXR: Cardiomegaly with suspected volume overload and congestive change. Bibasilar opacities right greater than left. Bilateral pleural effusions. No leukocytosis, lactate: 2.5, troponin: 0.086, UA trace leuk esterace, >30 WBC without bacteria Was given Rocephin in ER She was started on Zosyn, Lasix 20mg IV x 1 dose (3) Congestive heart failure: Acute CHF exacerbation CXR: Cardiomegaly with suspected volume overload and congestive change. Bibasilar opacities right greater than left. Bilateral pleural effusions. Trop. mildly elevated. Received 20 mg IV lasix on admission - diuresed well overnight, will obtain pro-BNP, will give 20 mg IV lasix this AM again as BP allows - Echo pending - telemetry reviewed, pt in sinus rhythm - monitor weight, I/Os - currently on 2L of O2, plan to wean off - repeat CXR tmrw AM - consider cardiology consult Hypokalemia - secondary to diuretic use -replace and monitor (4) Aspiration pneumonia: Reportedly patient has a history of swallowing difficulties at home typically with crushed medications and taking pudding. Right lower lobe changes seen on x-ray Speech evaluation ordered Zosyn to cover any infectious etiologies although currently her white blood cell count is low (5) Elevated lactic acid level: - resolved - Multifactorial possibly from infectious or possibly could be from congestive change seen on imaging (6) Elevated troponin: - likely secondary to decompensated HF - treatment as above - echocardiogram pending (7) CVA (cerebral vascular accident): Initial concern for recurrent stroke may have been clouded by administration of lorazepam at home. Patient has no acute stroke seen on initi al imaging nor aneurysm or occlusion seen on angiogram. 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 At [facility] [place] she had thrombectomy of right M2 occlusion. Pt on pureed diet, thin liquids, requires pills to be crushed -CT and CTA obtained on this admission - no new CVA -discussed with Dr. Moss (neurology), likely no benefit from more imaging such as MRI -cont. aspirin, eliquis, atorvastatin -aspiration precautions -Speech consult (8) Paroxysmal atrial fibrillation: Developed atrial fibrillation post op in 05/2019 Current sinus rhythm -Eliquis, metoprolol tartrate (9) Humerus fracture: Reportedly sustained a proximal left humeral fracture with her stroke on June 01. Will provide a sling. Orthopedics consulted, appreciate their input (10) HTN (hypertension): - cont. metoprolol 25 BID and losartan 50 daily (11) DVT prophylaxis: - cont. home Eliquis 2.5 twice daily Admission and Anticipated Discharge Date Admission Date: July 04, 2019 Subjective Pt is lying in bed, in NAD, however very somnolent and does not answer questions appropriately. She denies any chest pain, abdominal pain, or shortness of breath. She also talks about [place] and "last supper" during my interview and falls asleep intermittently. Review of Systems Review of Systems: Unobtainable due to cognitive status Physical Exam Physical Exam: General: elderly thin female lying in bed, in NAD, +ill appearing HEENT: normocephalic, atraumatic, no scleral icterus Neck: supple Resp: Lungs are clear to auscultation Cardiac: regular, no murmurs noted Abdomen: normal bowel sounds, soft nontender, no masses, nondistended Extremities: ecchymosis to the proximal left arm with deformity and decreased mobility Neuro: somnolent, does not answer questions appropriately, but speech seems fluent, limited left arm use Skin: warm, dry, no rashes, bruising noted to left upper arm Results & Data Results & Data ([facility]) Vital Signs (Past 12 Hours) Vital Signs Temp Pulse Pulse Resp BP Pulse Ox 07/05/19 07:32 35.8 C L 57 L 18 171/75 H 98 07/05/19 04:00 36.4 C L 59 L 18 162/76 H 100 05/23/20 00:43 54 L 07/04/19 23:00 36.4 C L 61 16 175/68 H 92 Laboratory Results 07/05/19 07/05/19 07/05/19 Range/Units 06:35 06:35 06:35 WBC 8.88 (4.8-10.8) K/uL RBC 3.97 L (4.2-5.4) M/uL Hgb 13.5 (12.0-16.0) g/dL POC Hgb (12.0-16.0) g/dl Hct 41.8 (37-47) % POC Hct (37-47) % MCV 105.3 H (80-100) fL MCH 34.0 (25-34) pg MCHC 32.3 (32-36) g/dL RDW Std Deviation 64.0 H (36.4-46.3) fL RDW Coeff of Brii 16.8 H (11.5-14.5) % Plt Count 276 (130-400) K/uL MPV 10.5 H (7.4-10.4) fL Immature Gran % (Auto) % Neut % (Auto) % Lymph % (Auto) % [place] % (Auto) % Eos % (Auto) % Baso % (Auto) % Immature Gran # (Auto) (0.00-0.02) K/uL Neut # (Auto) (1.4-6.5) K/uL Lymph # (Auto) (1.2-3.4) K/uL [place] # (Auto) (0.11-0.59) K/uL Eos # (Auto) (0-0.5) K/uL Baso # (Auto) (0-0.2) K/uL PT (9.0-12.0) Seconds INR (0.9-1.1) APTT (21.0-31.0) Seconds PTT Ratio VBG pH (7.36-7.41) VBG pCO2 (38-50) mmHg VBG pO2 mmHg VBG HCO3 mmol/L VBG O2 Saturation % VBG Base Excess mEq/L Barometric Pressure mm/Hg POC Sodium (135-144) mmol/L Sodium 143 (136-145) mmol/L POC Potassium (3.3-5.0) mmol/L Potassium 3.1 L D (3.5-5.1) mmol/L POC Chloride (101-112) mmol/L Chloride 105 (98-107) mmol/L Carbon Dioxide 28 (21-32) mmol/L POC Total CO2 (24-31) mmol/L Anion Gap 10.0 (3-11) POC Anion Gap (16-25) mmol/L POC BUN (7-18) mg/dl BUN 27 H (7-18) mg/dl Creatinine 1.04 (0.6-1.2) mg/dl POC Creatinine (0.6-1.3) mg/dl Est Cr Clr Drug Dosing 25.5 ml/min Est GFR ( Amer) 56.3 Est GFR (Non-Af Amer) 48.6 BUN/Creatinine Ratio 25.7 H (10-20) Glucose 102 H (70-99) mg/dl POC Glucose (other) (70-99) mg/dl Lactate (0.4-2.0) mmol/L Calcium 9.5 (8.5-10.1) mg/dl POC Ioniz Calcium Gustabo (1.12-1.32) mmol/l Phosphorus 3.3 (2.5-4.9) mg/dl Magnesium 2.2 (1.8-2.4) mg/dl Total Bilirubin 2.0 H (0.2-1) mg/dl Direct Bilirubin 0.9 H (0-0.2) mg/dl AST 59 H (15-37) U/L ALT 86 H (12-78) U/L Alkaline Phosphatase 156 H (45-117) U/L Ammonia (11-32) umol/L Troponin I 0.090 H* (0-0.045) ng/ml Total Protein 7.0 (6.4-8.2) gm/dl Albumin 3.4 (3.4-5.0) gm/dl Globulin (2.5-4.0) gm/dl Albumin/Globulin Ratio (0.9-2) TSH (0.300-4.500) uIu/ml Urine Color Urine Appearance (Clear) Urine pH (4.5-7.5) Ur Specific [place] (1.000-1.030) Urine Protein (Negative) Urine Glucose (UA) (Negative) Urine Ketones (Negative) Urine Blood (Negative) Urine Nitrite (Negative) Urine Bilirubin (Negative) Urine Urobilinogen (Negative) Ur Leukocyte Esterase (Negative) Urine WBC (Auto) (0-5) /hpf Urine RBC (Auto) (0-4) /hpf U Hyaline Cast (Auto) (0-5) /lpf U Epithel Cells (Auto) (0-5) /lpf Urine Bacteria (Auto) (Negative) Amorphous Sediment (None Prsent) Blood Type Antibody Screen 07/05/19 07/04/19 07/04/19 Range/Units 00:40 20:58 20:58 WBC (4.8-10.8) K/uL RBC (4.2-5.4) M/uL Hgb (12.0-16.0) g/dL POC Hgb (12.0-16.0) g/dl Hct (37-47) % POC Hct (37-47) % MCV (80-100) fL MCH (25-34) pg MCHC (32-36) g/dL RDW Std Deviation (36.4-46.3) fL RDW Coeff of Brii (11.5-14.5) % Plt Count (130-400) K/uL MPV (7.4-10.4) fL Immature Gran % (Auto) % Neut % (Auto) % Lymph % (Auto) % [place] % (Auto) % Eos % (Auto) % Baso % (Auto) % Immature Gran # (Auto) (0.00-0.02) K/uL Neut # (Auto) (1.4-6.5) K/uL Lymph # (Auto) (1.2-3.4) K/uL [place] # (Auto) (0.11-0.59) K/uL Eos # (Auto) (0-0.5) K/uL Baso # (Auto) (0-0.2) K/uL PT (9.0-12.0) Seconds INR (0.9-1.1) APTT (21.0-31.0) Seconds PTT Ratio VBG pH (7.36-7.41) VBG pCO2 (38-50) mmHg VBG pO2 mmHg VBG HCO3 mmol/L VBG O2 Saturation % VBG Base Excess mEq/L Barometric Pressure mm/Hg POC Sodium (135-144) mmol/L Sodium (136-145) mmol/L POC Potassium (3.3-5.0) mmol/L Potassium (3.5-5.1) mmol/L POC Chloride (101-112) mmol/L Chloride (98-107) mmol/L Carbon Dioxide (21-32) mmol/L POC Total CO2 (24-31) mmol/L Anion Gap (3-11) POC Anion Gap (16-25) mmol/L POC BUN (7-18) mg/dl BUN (7-18) mg/dl Creatinine (0.6-1.2) mg/dl POC Creatinine (0.6-1.3) mg/dl Est Cr Clr Drug Dosing ml/min Est GFR ( Amer) Est GFR (Non-Af Amer) BUN/Creatinine Ratio (10-20) Glucose (70-99) mg/dl POC Glucose (other) (70-99) mg/dl Lactate 1.5 (0.4-2.0) mmol/L Calcium (8.5-10.1) mg/dl POC Ioniz Calcium Gust[place] (1.12-1.32) mmol/l Phosphorus (2.5-4.9) mg/dl Magnesium (1.8-2.4) mg/dl Total Bilirubin (0.2-1) mg/dl Direct Bilirubin (0-0.2) mg/dl AST (15-37) U/L ALT (12-78) U/L Alkaline Phosphatase (45-117) U/L Ammonia (11-32) umol/L Troponin I 0.090 H* (0-0.045) ng/ml Total Protein (6.4-8.2) gm/dl Albumin (3.4-5.0) gm/dl Globulin (2.5-4.0) gm/dl Albumin/Globulin Ratio (0.9-2) TSH 3.750 (0.300-4.500) uIu/ml Urine Color Urine Appearance (Clear) Urine pH (4.5-7.5) Ur Specific [place] (1.000-1.030) Urine Protein (Negative) Urine Glucose (UA) (Negative) Urine Ketones (Negative) Urine Blood (Negative) Urine Nitrite (Negative) Urine Bilirubin (Negative) Urine Urobilinogen (Negative) Ur Leukocyte Esterase (Negative) Urine WBC (Auto) (0-5) /hpf Urine RBC (Auto) (0-4) /hpf U Hyaline Cast (Auto) (0-5) /lpf U Epithel Cells (Auto) (0-5) /lpf Urine Bacteria (Auto) (Negative) Amorphous Sediment (None Prsent) Blood Type Antibody Screen 07/04/19 07/04/19 07/04/19 Range/Units 16:25 14:35 14:30 WBC (4.8-10.8) K/uL RBC (4.2-5.4) M/uL Hgb (12.0-16.0) g/dL POC Hgb 13.9 (12.0-16.0) g/dl Hct (37-47) % POC Hct 41 (37-47) % MCV (80-100) fL MCH (25-34) pg MCHC (32-36) g/dL RDW Std Deviation (36.4-46.3) fL RDW Coeff of Brii (11.5-14.5) % Plt Count (130-400) K/uL MPV (7.4-10.4) fL Immature Gran % (Auto) % Neut % (Auto) % Lymph % (Auto) % [place] % (Auto) % Eos % (Auto) % Baso % (Auto) % Immature Gran # (Auto) (0.00-0.02) K/uL Neut # (Auto) (1.4-6.5) K/uL Lymph # (Auto) (1.2-3.4) K/uL [place] # (Auto) (0.11-0.59) K/uL Eos # (Auto) (0-0.5) K/uL Baso # (Auto) (0-0.2) K/uL PT (9.0-12.0) Seconds INR (0.9-1.1) APTT (21.0-31.0) Seconds PTT Ratio VBG pH (7.36-7.41) VBG pCO2 (38-50) mmHg VBG pO2 mmHg VBG HCO3 mmol/L VBG O2 Saturation % VBG Base Excess mEq/L Barometric Pressure mm/Hg POC Sodium 143 (135-144) mmol/L Sodium (136-145) mmol/L POC Potassium 4.2 (3.3-5.0) mmol/L Potassium (3.5-5.1) mmol/L POC Chloride 109 (101-112) mmol/L Chloride (98-107) mmol/L Carbon Dioxide (21-32) mmol/L POC Total CO2 22 L (24-31) mmol/L Anion Gap (3-11) POC Anion Gap 17.0 (16-25) mmol/L POC BUN 32 H (7-18) mg/dl BUN (7-18) mg/dl Creatinine (0.6-1.2) mg/dl POC Creatinine 0.9 (0.6-1.3) mg/dl Est Cr Clr Drug Dosing ml/min Est GFR ( Amer) Est GFR (Non-Af Amer) BUN/Creatinine Ratio (10-20) Glucose (70-99) mg/dl POC Glucose (other) 137 H (70-99) mg/dl Lactate 2.7 H* (0.4-2.0) mmol/L Calcium (8.5-10.1) mg/dl POC Ioniz Calcium Gust[place] 1.19 (1.12-1.32) mmol/l Phosphorus (2.5-4.9) mg/dl Magnesium (1.8-2.4) mg/dl Total Bilirubin (0.2-1) mg/dl Direct Bilirubin (0-0.2) mg/dl AST (15-37) U/L ALT (12-78) U/L Alkaline Phosphatase (45-117) U/L Ammonia (11-32) umol/L Troponin I (0-0.045) ng/ml Total Protein (6.4-8.2) gm/dl Albumin (3.4-5.0) gm/dl Globulin (2.5-4.0) gm/dl Albumin/Globulin Ratio (0.9-2) TSH (0.300-4.500) uIu/ml Urine Color Dark Yellow Urine Appearance Cloudy A (Clear) Urine pH 5.0 (4.5-7.5) Ur Specific [place] 1.025 (1.000-1.030) Urine Protein 3+ H (Negative) Urine Glucose (UA) Negative (Negative) Urine Ketones Trace H (Negative) Urine Blood Negative (Negative) Urine Nitrite Negative (Negative) Urine Bilirubin Negative (Negative) Urine Urobilinogen Negative (Negative) Ur Leukocyte Esterase Trace H (Negative) Urine WBC (Auto) >30 H (0-5) /hpf Urine RBC (Auto) 0-4 (0-4) /hpf U Hyaline Cast (Auto) 1-5 (0-5) /lpf U Epithel Cells (Auto) 0-5 (0-5) /lpf Urine Bacteria (Auto) Negative (Negative) Amorphous Sediment Present A (None Prsent) Blood Type Antibody Screen 07/04/19 07/04/19 07/04/19 Range/Units 14:25 14:25 14:25 WBC (4.8-10.8) K/uL RBC (4.2-5.4) M/uL Hgb (12.0-16.0) g/dL POC Hgb (12.0-16.0) g/dl Hct (37-47) % POC Hct (37-47) % MCV (80-100) fL MCH (25-34) pg MCHC (32-36) g/dL RDW Std Deviation (36.4-46.3) fL RDW Coeff of Brii (11.5-14.5) % Plt Count (130-400) K/uL MPV (7.4-10.4) fL Immature Gran % (Auto) % Neut % (Auto) % Lymph % (Auto) % [place] % (Auto) % Eos % (Auto) % Baso % (Auto) % Immature Gran # (Auto) (0.00-0.02) K/uL Neut # (Auto) (1.4-6.5) K/uL Lymph # (Auto) (1.2-3.4) K/uL [place] # (Auto) (0.11-0.59) K/uL Eos # (Auto) (0-0.5) K/uL Baso # (Auto) (0-0.2) K/uL PT (9.0-12.0) Seconds INR (0.9-1.1) APTT (21.0-31.0) Seconds PTT Ratio VBG pH 7.43 H (7.36-7.41) VBG pCO2 40 (38-50) mmHg VBG pO2 25 mmHg VBG HCO3 26 mmol/L VBG O2 Saturation < 60.0 % VBG Base Excess 1.5 mEq/L Barometric Pressure 733.3 mm/Hg POC Sodium (135-144) mmol/L Sodium (136-145) mmol/L POC Potassium (3.3-5.0) mmol/L Potassium (3.5-5.1) mmol/L POC Chloride (101-112) mmol/L Chloride (98-107) mmol/L Carbon Dioxide (21-32) mmol/L POC Total CO2 (24-31) mmol/L Anion Gap (3-11) POC Anion Gap (16-25) mmol/L POC BUN (7-18) mg/dl BUN (7-18) mg/dl Creatinine (0.6-1.2) mg/dl POC Creatinine (0.6-1.3) mg/dl Est Cr Clr Drug Dosing ml/min Est GFR ( Amer) Est GFR (Non-Af Amer) BUN/Creatinine Ratio (10-20) Glucose (70-99) mg/dl POC Glucose (other) (70-99) mg/dl Lactate 2.5 H* (0.4-2.0) mmol/L Calcium (8.5-10.1) mg/dl POC Ioniz Calcium [place] (1.12-1.32) mmol/l Phosphorus (2.5-4.9) mg/dl Magnesium (1.8-2.4) mg/dl Total Bilirubin (0.2-1) mg/dl Direct Bilirubin (0-0.2) mg/dl AST (15-37) U/L ALT (12-78) U/L Alkaline Phosphatase (45-117) U/L Ammonia < 10.0 L (11-32) umol/L Troponin I (0-0.045) ng/ml Total Protein (6.4-8.2) gm/dl Albumin (3.4-5.0) gm/dl Globulin (2.5-4.0) gm/dl Albumin/Globulin Ratio (0.9-2) TSH (0.300-4.500) uIu/ml Urine Color Urine Appearance (Clear) Urine pH (4.5-7.5) Ur Specific [place] (1.000-1.030) Urine Protein (Negative) Urine Glucose (UA) (Negative) Urine Ketones (Negative) Urine Blood (Negative) Urine Nitrite (Negative) Urine Bilirubin (Negative) Urine Urobilinogen (Negative) Ur Leukocyte Esterase (Negative) Urine WBC (Auto) (0-5) /hpf Urine RBC (Auto) (0-4) /hpf U Hyaline Cast (Auto) (0-5) /lpf U Epithel Cells (Auto) (0-5) /lpf Urine Bacteria (Auto) (Negative) Amorphous Sediment (None Prsent) Blood Type Antibody Screen 07/04/19 07/04/19 07/04/19 Range/Units 14:25 14:25 14:25 WBC 8.66 (4.8-10.8) K/uL RBC 3.71 L (4.2-5.4) M/uL Hgb 12.6 (12.0-16.0) g/dL POC Hgb (12.0-16.0) g/dl Hct 39.4 (37-47) % POC Hct (37-47) % MCV 106.2 H (80-100) fL MCH 34.0 (25-34) pg MCHC 32.0 (32-36) g/dL RDW Std Deviation 63.7 H (36.4-46.3) fL RDW Coeff of Brii 17.1 H (11.5-14.5) % Plt Count 285 (130-400) K/uL MPV 10.3 (7.4-10.4) fL Immature Gran % (Auto) 0.2 % Neut % (Auto) 73.0 % Lymph % (Auto) 15.9 % [place] % (Auto) 9.9 % Eos % (Auto) 0.9 % Baso % (Auto) 0.1 % Immature Gran # (Auto) 0.02 (0.00-0.02) K/uL Neut # (Auto) 6.31 (1.4-6.5) K/uL Lymph # (Auto) 1.38 (1.2-3.4) K/uL [place] # (Auto) 0.86 H (0.11-0.59) K/uL Eos # (Auto) 0.08 (0-0.5) K/uL Baso # (Auto) 0.01 (0-0.2) K/uL PT 14.0 H (9.0-12.0) Seconds INR 1.3 H (0.9-1.1) APTT 27.5 (21.0-31.0) Seconds PTT Ratio 1.0 VBG pH (7.36-7.41) VBG pCO2 (38-50) mmHg VBG pO2 mmHg VBG HCO3 mmol/L VBG O2 Saturation % VBG Base Excess mEq/L Barometric Pressure mm/Hg POC Sodium (135-144) mmol/L Sodium 144 (136-145) mmol/L POC Potassium (3.3-5.0) mmol/L Potassium 4.0 (3.5-5.1) mmol/L POC Chloride (101-112) mmol/L Chloride 109 H (98-107) mmol/L Carbon Dioxide 23 (21-32) mmol/L POC Total CO2 (24-31) mmol/L Anion Gap 12.0 H (3-11) POC Anion Gap (16-25) mmol/L POC BUN (7-18) mg/dl BUN 34 H (7-18) mg/dl Creatinine 1.14 (0.6-1.2) mg/dl POC Creatinine (0.6-1.3) mg/dl Est Cr Clr Drug Dosing 25.4 ml/min Est GFR ( Amer) 50.4 Est GFR (Non-Af Amer) 43.5 BUN/Creatinine Ratio 29.6 H (10-20) Glucose 138 H (70-99) mg/dl POC Glucose (other) (70-99) mg/dl Lactate (0.4-2.0) mmol/L Calcium 9.5 (8.5-10.1) mg/dl POC Ioniz Calcium [place] (1.12-1.32) mmol/l Phosphorus (2.5-4.9) mg/dl Magnesium 2.4 (1.8-2.4) mg/dl Total Bilirubin 2.0 H (0.2-1) mg/dl Direct Bilirubin (0-0.2) mg/dl AST 78 H (15-37) U/L ALT 102 H (12-78) U/L Alkaline Phosphatase 163 H (45-117) U/L Ammonia (11-32) umol/L Troponin I 0.086 H* (0-0.045) ng/ml Total Protein 7.0 (6.4-8.2) gm/dl Albumin 3.5 (3.4-5.0) gm/dl Globulin 3.5 (2.5-4.0) gm/dl Albumin/Globulin Ratio 1.0 (0.9-2) TSH (0.300-4.500) uIu/ml Urine Color Urine Appearance (Clear) Urine pH (4.5-7.5) Ur Specific [place] (1.000-1.030) Urine Protein (Negative) Urine Glucose (UA) (Negative) Urine Ketones (Negative) Urine Blood (Negative) Urine Nitrite (Negative) Urine Bilirubin (Negative) Urine Urobilinogen (Negative) Ur Leukocyte Esterase (Negative) Urine WBC (Auto) (0-5) /hpf Urine RBC (Auto) (0-4) /hpf U Hyaline Cast (Auto) (0-5) /lpf U Epithel Cells (Auto) (0-5) /lpf Urine Bacteria (Auto) (Negative) Amorphous Sediment (None Prsent) Blood Type Antibody Screen 07/04/19 Range/Units 14:25 WBC (4.8-10.8) K/uL RBC (4.2-5.4) M/uL Hgb (12.0-16.0) g/dL POC Hgb (12.0-16.0) g/dl Hct (37-47) % POC Hct (37-47) % MCV (80-100) fL MCH (25-34) pg MCHC (32-36) g/dL RDW Std Deviation (36.4-46.3) fL RDW Coeff of Brii (11.5-14.5) % Plt Count (130-400) K/uL MPV (7.4-10.4) fL Immature Gran % (Auto) % Neut % (Auto) % Lymph % (Auto) % [place] % (Auto) % Eos % (Auto) % Baso % (Auto) % Immature Gran # (Auto) (0.00-0.02) K/uL Neut # (Auto) (1.4-6.5) K/uL Lymph # (Auto) (1.2-3.4) K/uL [place] # (Auto) (0.11-0.59) K/uL Eos # (Auto) (0-0.5) K/uL Baso # (Auto) (0-0.2) K/uL PT (9.0-12.0) Seconds INR (0.9-1.1) APTT (21.0-31.0) Seconds PTT Ratio VBG pH (7.36-7.41) VBG pCO2 (38-50) mmHg VBG pO2 mmHg VBG HCO3 mmol/L VBG O2 Saturation % VBG Base Excess mEq/L Barometric Pressure mm/Hg POC Sodium (135-144) mmol/L Sodium (136-145) mmol/L POC Potassium (3.3-5.0) mmol/L Potassium (3.5-5.1) mmol/L POC Chloride (101-112) mmol/L Chloride (98-107) mmol/L Carbon Dioxide (21-32) mmol/L POC Total CO2 (24-31) mmol/L Anion Gap (3-11) POC Anion Gap (16-25) mmol/L POC BUN (7-18) mg/dl BUN (7-18) mg/dl Creatinine (0.6-1.2) mg/dl POC Creatinine (0.6-1.3) mg/dl Est Cr Clr Drug Dosing ml/min Est GFR ( Amer) Est GFR (Non-Af Amer) BUN/Creatinine Ratio (10-20) Glucose (70-99) mg/dl POC Glucose (other) (70-99) mg/dl Lactate (0.4-2.0) mmol/L Calcium (8.5-10.1) mg/dl POC Ioniz Calcium [place] (1.12-1.32) mmol/l Phosphorus (2.5-4.9) mg/dl Magnesium (1.8-2.4) mg/dl Total Bilirubin (0.2-1) mg/dl Direct Bilirubin (0-0.2) mg/dl AST (15-37) U/L ALT (12-78) U/L Alkaline Phosphatase (45-117) U/L Ammonia (11-32) umol/L Troponin I (0-0.045) ng/ml Total Protein (6.4-8.2) gm/dl Albumin (3.4-5.0) gm/dl Globulin (2.5-4.0) gm/dl Albumin/Globulin Ratio (0.9-2) TSH (0.300-4.500) uIu/ml Urine Color Urine Appearance (Clear) Urine pH (4.5-7.5) Ur Specific [place] (1.000-1.030) Urine Protein (Negative) Urine Glucose (UA) (Negative) Urine Ketones (Negative) Urine Blood (Negative) Urine Nitrite (Negative) Urine Bilirubin (Negative) Urine Urobilinogen (Negative) Ur Leukocyte Esterase (Negative) Urine WBC (Auto) (0-5) /hpf Urine RBC (Auto) (0-4) /hpf U Hyaline Cast (Auto) (0-5) /lpf U Epithel Cells (Auto) (0-5) /lpf Urine Bacteria (Auto) (Negative) Amorphous Sediment (None Prsent) Blood Type O Positive Antibody Screen NEGATIVE Medications Administered Current Inpatient Medications Acetaminophen (Tylenol) 650 mg PO Q4H PRN PRN Reason: Moderate Pain Stop: 08/03/19 17:13 Apixaban (Eliquis) 2.5 mg PO BID [facility] Stop: 08/03/19 20:59 Last Admin: 07/05/19 08:22 Dose: Not Given Documented by: Artificial Tears (Artificial Tears) 1 drops OP BID PRN PRN Reason: DRY EYES Stop: 08/03/19 20:08 Aspirin (Ecotrin Ectab) 81 mg PO QAM [facility] Stop: 08/04/19 08:59 Last Admin: 07/05/19 08:22 Dose: Not Given Documented by: Atorvastatin Calcium (Lipitor) 40 mg PO DAILY [facility] Stop: 08/04/19 08:59 Last Admin: 07/05/19 08:28 Dose: Not Given Documented by: Piperacillin Sod/Tazobactam (Sod 3.375 gm/ Dextrose) 115 mls @ 28.75 mls/hr IV Q8H [facility]; Protocol Stop: 07/12/19 00:00 Last Admin: 07/05/19 08:21 Dose: 28.8 mls/hr Documented by: Losartan Potassium (Cozaar) 50 mg PO BID [facility] Stop: 08/03/19 20:59 Last Admin: 07/05/19 08:22 Dose: Not Given Documented by: Metoprolol Tartrate (Lopressor) 12.5 mg PO BID [facility] Stop: 08/04/19 08:59 Last Admin: 07/05/19 08:22 Dose: Not Given Documented by: Miscellaneous Information (Consult) 1 ea N/A UD PRN PRN Reason: Consult Stop: 08/03/19 17:13 Ondansetron HCl (Zofran) 4 mg IV Q4H PRN PRN Reason: Nausea And Vomiting Stop: 08/03/19 17:13 Timolol Maleate (Timoptic 0.25% Oph) 1 drops OPB QAM [facility] Stop: 08/04/19 08:59 Last Admin: 07/05/19 08:21 Dose: 1 drops Documented by: (1) AMS (altered mental status) Altered mental status type: unspecified Qualified Code(s): R41.82 - Altered mental status, unspecified
[2019-07-05] MEDS ORDERED: POTASSIUM CHLORIDE 20 MEQ TABCR PO STA (09:57)
[2019-07-05] MEDS ORDERED: FUROSEMIDE 20 MG in SYRINGE 0 ML IV ONE (10:15)
[2019-07-05] MEDS: POTASSIUM CHLORIDE / WTR 10 MEQ/100 ML PLCT IV SCH ×2 (10:46→11:48)
--- NOTE | 2019-07-05 11:18 | Orthopedic Consultation ---
Date of Consultation July 05, 2019 Assessment & Plan (1) Humerus fracture: The patient had sustained a proximal humerus fracture at the time of her stroke around June 01. I have reviewed my office his chart and she was seen in follow-up in our office with Dr. Ray's team. She was continued in a sling. I have compared the injury films that are in my office system with the chest x- ray that we have from here. There does not appear to be any significant increase in displacement. There is a significant mouth callus that is forming. I will order shoulder films just for completeness of the evaluation but my recommendation would be for continue with sling immobilization and then follow- up in the office with Dr. Ray for surveillance x-rays in 2 weeks. Present on Admission?: Yes History of Present Illness Reason for Consultation: Left proximal humerus fracture Attending Physician: Alli Mejia MD History of Present Illness The patient is a 84-year-old female brought for concerns of strokelike symptoms. She had previously been flown to [place] for treatment of a large stroke with what sounds like an embolectomy. The patient had sustained a a proximal humeral fracture with her stroke in June 01. She has been in a sling. She is currently confused and not answering questions. Allergies Allergy/AdvReac Type Severity Reaction Status Date / Time No Known Allergies Allergy Unverified 07/04/19 15:23 Home Medications Home Medications Medication Instructions Recorded Confirmed Type apixaban [Eliquis] 2.5 mg PO BID 07/04/19 07/04/19 History aspirin 81 mg PO QAM 07/04/19 07/04/19 History atorvastatin 40 mg PO DAILY 07/04/19 07/04/19 History losartan 50 mg PO BID 07/04/19 07/04/19 History metoprolol tartrate 25 mg PO BID 07/04/19 07/04/19 History peg 400-propylene glycol (PF) 1 drp OPHTHALMIC (EYE) BID PRN 07/04/19 07/04/19 History [Systane (PF)] timolol maleate 1 drp OPB QAM 07/04/19 07/04/19 History Patient History Medical History (Updated 07/04/19 @ 20:26 by Fadumo Brock PA-C) Broken arm CVA (cerebral vascular accident) HLD (hyperlipidemia) HTN (hypertension) Paroxysmal atrial fibrillation Surgical History (Updated 07/04/19 @ 20:26 by Fadumo Brock PA-C) History of cataract surgery History of tonsillectomy and adenoidectomy Family History (Updated 07/04/19 @ 16:48 by Joe Greene MD) Father Hypertension Coronary heart disease Social History Preferred Language: Malawian Copy Holder Required: No Beliefs That Will Affect Care: Confucianism Current Living Situation: Family Current Living Situation Comment: Home Health Feels Safe at Home: Yes Smoking Status: Never smoker Second Hand Exposure: No ; Hx Alcohol Use: No Hx Substance Use: No Physical Exam Constitutional: + thin Respiratory: normal respiratory effort Cardiovascular: Extremities: no edema Musculoskeletal: Left upper extremity: 2+ radial pulse. Capillary refill is less than 2 seconds. There is ecchymosis the proximal aspect humerus. Te nderness to palpation proximally Results & Data ([facility]) Vital Signs (Past 12 Hours) Vital Signs Temp Pulse Pulse Resp BP Pulse Ox 07/05/19 07:32 35.8 C L 57 L 18 171/75 H 98 07/05/19 04:00 36.4 C L 59 L 18 162/76 H 100 07/05/19 00:43 54 L
--- NOTE | 2019-07-05 12:41 | XRay Report ---
XR shoulder LT min 2V routine CLINICAL HISTORY: Left shoulder fracture. COMPARISON STUDY: Chest 07/04/2019. FINDINGS: Comminuted, displaced, impacted left humeral neck fracture. This demonstrates up to 2 cm of medial displacement. There are surrounding callus formation consistent with partial healing. There i s posterior subluxation/dislocation of the humeral head. IMPRESSION: 1. Subacute/healing displaced humeral neck fracture. 2. There is posterior subluxation/dislocation of the humeral head. ACT 112: Negative or not required by law. Electronically signed by: Cesar Noland M.D. 07/05/2019 12:40 PM
[2019-07-05] MEDS ORDERED: POTASSIUM CHLORIDE 20 MEQ TABCR PO ONE (13:00)
[2019-07-06] MEDS: ACETAMINOPHEN 325 MG TAB PO PRN ×2 (00:07→12:46)
[2019-07-06 00:48] LABS: BUN Creatinine Ratio 21.8 (10-20); Calcium 9.1 mg/dl (8.5-10.1); Creatinine Clr Calc Pharmacy 23.5 ml/min; Potassium 3.2 mmol/L (3.5-5.1)
[2019-07-06] MEDS ORDERED: POTASSIUM CHLORIDE 20 MEQ TABCR PO STA ×2 (01:39→09:10)
[2019-07-06] MEDS: POTASSIUM CHLORIDE / WTR 10 MEQ/100 ML PLCT IV SCH ×5 (02:15→14:25)
[2019-07-06 07:12] LABS: Hematocrit (blood only) 43.5 % (37-47); Hemoglobin 14.2 g/dL (12.0-16.0); Mean Corpuscular Hemoglobin 34.1 pg (25-34); Mean Corpuscular Hgb Conc 32.6 g/dL (32-36); Mean Corpuscular Volume 104.6 fL (80-100); Mean Platelet Volume 10.4 fL (7.4-10.4); Platelet Count 255 K/uL (130-400); RDW Coefficient of Variation 16.5 % (11.5-14.5); RDW Standard Deviation 62.3 fL (36.4-46.3); Red Blood Count 4.16 M/uL (4.2-5.4); White Blood Count 8.17 K/uL (4.8-10.8)
--- NOTE | 2019-07-06 07:23 | XRay Report ---
XR chest 1V portable CLINICAL HISTORY: follow up CXR COMPARISON STUDY: Chest radiograph July 04, 2019. FINDINGS: Healing displaced left humeral neck fracture is noted. There is no pneumothorax. Small bila teral pleural effusions persist. Bibasilar opacities are again noted. Pulmonary edema has slightly im proved. IMPRESSION: 1. Mild improvement in pulmonary edema. 2. Persistent small bilateral pleural effusions and bibasilar opacities which may reflect pneumonia o r atelectasis. Radiographic follow-up is recommended. ACT 112: Negative or not required by law. Electronically signed by: Abbe Tate M.D. 07/06/2019 7:22 AM
[2019-07-06 07:36] LABS: BUN Creatinine Ratio 21.7 (10-20); Calcium 9.6 mg/dl (8.5-10.1); Creatinine Clr Calc Pharmacy 23.2 ml/min; Est GFR (African American) 49.9; Magnesium 2.2 mg/dl (1.8-2.4); Potassium 3.4 mmol/L (3.5-5.1)
[2019-07-06 07:42] LABS: Phosphorus 3.1 mg/dl (2.5-4.9)
[2019-07-06] MEDS: LOSARTAN POTASSIUM 50 MG TAB PO SCH ×2 (08:43→20:34)
[2019-07-06] MEDS: ASPIRIN 81 MG ECTAB PO SCH (08:43)
[2019-07-06] MEDS: METOPROLOL TARTRATE 25 MG TAB PO SCH ×2 (08:43→20:35)
[2019-07-06] MEDS: ATORVASTATIN 40 MG TAB PO SCH (08:44)
[2019-07-06] MEDS: TIMOLOL MALEATE 0.25% OP SOLN 5 ML BTL OPB SCH (08:44)
[2019-07-06] MEDS: APIXABAN 2.5 MG TAB PO SCH ×2 (08:44→20:34)
[2019-07-06] MEDS: PIPERACILLIN/TAZOBACTAM 3.375 GM in DEXTROSE 5% 100 ML IV SCH (08:45)
[2019-07-06] MEDS ORDERED: VANCOMYCIN CONSULT ACTIVE PRN (09:05)
--- NOTE | 2019-07-06 09:18 | Hospitalist Progress Note ---
Date of Service July 06, 2019 Assessment & Plan (1) AMS (altered mental status): (2) Encephalopathy: Pt with reported AMS. It is reported a nurse noted pt to be anxious at home and Ativan was given. Reported pt had altered mental status. Patient presents w/encephalopathy which could be toxic from recent lorazepam use at home according to the family, could be metabolic from aspiration pneumonia or urinary tract infection present on admission as she has had preceding symptoms at home. Patient will be given Zosyn therapy blood cultures and urine cultures will be sent no further benzodiazepines abuse if able. In ER reported non-focal exam findings, had CT head and a CTA head which were unremarkable with exception of her old MCA territory stroke. CXR: Cardiomegaly with suspected volume overload and congestive change. Bibasilar opacities right greater than left. Bilateral pleural effusions. No leukocytosis, lactate: 2.5, troponin: 0.086, UA trace leuk esterace, >30 WBC without bacteria Was given Rocephin in ER She was started on Zosyn, Lasix 20mg IV x 1 dose (3) Congestive heart failure: Acute CHF exacerbation CXR: Cardiomegaly with suspected volume overload and congestive change. Bibasilar opacities right greater than left. Bilateral pleural effusions. Trop. mildly elevated. Received 20 mg IV lasix on admission - diuresed well overnight, pro-BNP obtained after admission, significantly elev ated, over 35,000, was given additional 20 mg IV lasix yesterday - Echo (07/04) Left ventricle grossly normal in size, mild concentric LVH. LV systolic function moderately reduced, EF 35%. Mid to distal anterior wall apex and inferior apex and septum and anterior septum are akinetic, this is consistent with prior LAD infarct. Left atrium severely dilated. RV systolic pressure elevated at 30-40. Diastolic dysfunction grade 2, consistent with elevated left atrial pressure. - telemetry reviewed, pt in sinus rhythm - monitor weight, I/Os - weaned off supplemental O2, currently on room air - repeat CXR this AM shows improved, edema - Cardiology consulted, appreciate their input, plan for additional IV Lasix today Hypokalemia - secondary to diuretic use -replace and monitor (4) Aspiration pneumonia: Reportedly patient has a history of swallowing difficulties at home typically with crushed medications and taking pudding. Right lower lobe changes seen on x-ray Speech evaluation ordered Zosyn to cover any infectious etiologies although currently her white blood cell count is low Given elevated BNP, changes on x-ray likely due to pulmonary edema, will DC antibiotics (5) Elevated lactic acid level: - resolved - Multifactorial possibly from infectious or possibly could be from congestive change seen on imaging (6) Elevated troponin: - likely secondary to decompensated HF - treatment as above - echocardiogram pending (7) CVA (cerebral vascular accident): Initial concern for recurrent stroke may have been clouded by administration of lorazepam at home. Patient has no acute stroke seen on initial imaging nor aneurysm or occlusion seen on angiogram. 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 [facility] [place] thrombectomy of right M2 occlusion. Pt on pureed diet, thin liquids, requires pills to be crushed -CT and CTA obtained on this admission - no new CVA -discussed with Dr. Moss (neurology), likely no benefit from more imaging such as MRI -cont. aspirin, eliquis, atorvastatin -aspiration precautions -Speech consult (8) Paroxysmal atrial fibrillation: Developed atrial fibrillation post op in 05/2019 Current sinus rhythm -Eliquis, metoprolol tartrate (9) Humerus fracture: Reportedly sustained a proximal left humeral fracture with her stroke on June 01. Will provide a sling. Orthopedics consulted - recommend to follow-up as outpatient, currently no inpatient procedures planned (10) HTN (hypertension): - cont. metoprolol 25 BID and losartan 50 daily (11) DVT prophylaxis: - cont. home Eliquis 2.5 twice daily Admission and Anticipated Discharge Date Admission Date: July 04, 2019 Subjective No acute events overnight. Patient is more awake today, able to answer more questions, but still appears very tired. Currently is lying in bed, in NAD. She tells me that she feels much better now after she had a bowel movement. She denies any chest pain, abdominal pain, or shortness of breath. Per nursing staff, patient was able to have small amount of breakfast, then around lunchtime did not want to take anything p.o. Echo was obtained, shows reduced ejection fraction. BNP was obtained yesterday, significantly elevated, over 35,000. Now after giving her more Lasix yesterday BNP decreased and patient diuresed well. Repeat CXR this AM shows improved pulmonary edema. Cardiology consulted for further recommendations. Review of Systems Review of Systems: All systems reviewed & are unremarkable except as noted in HPI & below Constitutional: no fever and no chills Respiratory: no cough and no dyspnea Cardiovascular: no chest pain and no palpitations Gastrointestinal: no abdominal pain, no nausea and no vomiting Physical Exam Physical Exam: General: elderly thin female lying in bed, in NAD, +ill appearing HEENT: normocephalic, atraumatic, no scleral icterus Neck: supple Resp: decreased lung sounds Cardiac: regular, soft syst. murmur Abdomen: normal bowel sounds, soft nontender, no masses, nondistended Extremities: ecchymosis to the proximal left arm with deformity and decreased mobility Neuro: somnolent, but able to answer simple questions appropriately, speech seems fluent, limited left arm use Skin: warm, dry, no rashes, bruising noted to left upper arm Results & Data Results & Data ([facility]) Vital Signs (Past 12 Hours) Vital Signs Temp Pulse Pulse Resp BP Pulse Ox 07/06/19 07:57 59 L 07/06/19 07:25 36.0 C L 63 18 127/75 100 07/06/19 03:29 36.3 C L 67 19 119/57 L 99 07/06/19 01:58 66 07/06/19 00:00 36.5 C 82 18 130/72 99 07/05/19 21:24 64 125/74 Laboratory Results 07/06/19 07/06/19 07/06/19 Range/Units 06:37 06:37 00:23 WBC 8.17 (4.8-10.8) K/uL RBC 4.16 L (4.2-5.4) M/uL Hgb 14.2 (12.0-16.0) g/dL Hct 43.5 (37-47) % MCV 104.6 H (80-100) fL MCH 34.1 H (25-34) pg MCHC 32.6 (32-36) g/dL RDW Std Deviation 62.3 H (36.4-46.3) fL RDW Coeff of Brii 16.5 H (11.5-14.5) % Plt Count 255 (130-400) K/uL MPV 10.4 (7.4-10.4) fL Sodium 140 143 (136-145) mmol/L Potassium 3.4 L 3.2 L (3.5-5.1) mmol/L Chloride 101 103 (98-107) mmol/L Carbon Dioxide 30 29 (21-32) mmol/L Anion Gap 9.0 11.0 (3-11) BUN 25 H 25 H (7-18) mg/dl Creatinine 1.15 1.13 (0.6-1.2) mg/dl Est Cr Clr Drug Dosing 23.2 23.5 ml/min Est GFR ( Amer) 49.9 51.0 Est GFR (Non-Af Amer) 43.0 44.0 BUN/Creatinine Ratio 21.7 H 21.8 H (10-20) Glucose 100 H 114 H (70-99) mg/dl Calcium 9.6 9.1 (8.5-10.1) mg/dl Phosphorus 3.1 (2.5-4.9) mg/dl Magnesium 2.2 (1.8-2.4) mg/dl NT-Pro-B Natriuret Pep 38707 H (0-1800) pg/ml 07/05/19 Range/Units 06:35 WBC (4.8-10.8) K/uL RBC (4.2-5.4) M/uL Hgb (12.0-16.0) g/dL Hct (37-47) % MCV (80-100) fL MCH (25-34) pg MCHC (32-36) g/dL RDW Std Deviation (36.4-46.3) fL RDW Coeff of Brii (11.5-14.5) % Plt Count (130-400) K/uL MPV (7.4-10.4) fL Sodium (136-145) mmol/L Potassium (3.5-5.1) mmol/L Chloride (98-107) mmol/L Carbon Dioxide (21-32) mmol/L Anion Gap (3-11) BUN (7-18) mg/dl Creatinine (0.6-1.2) mg/dl Est Cr Clr Drug Dosing ml/min Est GFR ( Amer) Est GFR (Non-Af Amer) BUN/Creatinine Ratio (10-20) Glucose (70-99) mg/dl Calcium (8.5-10.1) mg/dl Phosphorus (2.5-4.9) mg/dl Magnesium (1.8-2.4) mg/dl NT-Pro-B Natriuret Pep > 38580 H (0-1800) pg/ml Diagnostic Findings CXR 07/05 IMPRESSION: 1. Mild improvement in pulmonary edema. 2. Persistent small bilateral pleural effusions and bibasilar opacities which may reflect pneumonia or atelectasis. Radiographic follow-up is recommended. Echo 07/04 Left ventricle grossly normal in size, mild concentric LVH. LV systolic function moderately reduced, EF 35%. Mid to distal anterior wall apex and inferior apex and septum and anterior septum are akinetic, this is consistent with prior LAD infarct. Left atrium severely dilated. RV systolic pressure elevated at 30-40. Diastolic dysfunction grade 2, consistent with elevated left atrial pressure. Medications Administered Current Inpatient Medications Acetaminophen (Tylenol) 650 mg PO Q4H PRN PRN Reason: Moderate Pain Stop: 08/03/19 17:13 Last Admin: 07/06/19 00:07 Dose: 650 mg Documented by: Apixaban (Eliquis) 2.5 mg PO BID [facility] Stop: 08/03/19 20:59 Last Admin: 07/06/19 08:44 Dose: 2.5 mg Documented by: Artificial Tears (Artificial Tears) 1 drops OP BID PRN PRN Reason: DRY EYES Stop: 08/03/19 20:08 Aspirin (Ecotrin Ectab) 81 mg PO QAM [facility] Stop: 08/04/19 08:59 Last Admin: 07/06/19 08:43 Dose: 81 mg Documented by: Atorvastatin Calcium (Lipitor) 40 mg PO DAILY [facility] Stop: 08/04/19 08:59 Last Admin: 07/06/19 08:44 Dose: 40 mg Documented by: Piperacillin Sod/Tazobactam (Sod 3.375 gm/ Dextrose) 115 mls @ 28.75 mls/hr IV Q8H [facility]; Protocol Stop: 07/12/19 00:00 Last Admin: 07/06/19 08:45 Dose: 28.8 mls/hr Documented by: Potassium Chloride (K Sarbjit / Wtr) 10 meq in 100 mls @ 100 mls/hr IV Q1H [facility] Stop: 07/06/19 12:29 Vancomycin HCl 1,000 mg/ (Sodium Chloride) 270 mls @ 125 mls/hr IV ONE ONE Stop: 07/06/19 11:39 Losartan Potassium (Cozaar) 50 mg PO BID [facility] Stop: 08/03/19 20:59 Last Admin: 07/06/19 08:43 Dose: 50 mg Documented by: Metoprolol Tartrate (Lopressor) 12.5 mg PO BID [facility] Stop: 08/04/19 08:59 Last Admin: 07/06/19 08:43 Dose: 12.5 mg Documented by: Miscellaneous Information (Consult) 1 ea N/A UD PRN PRN Reason: Consult Stop: 08/03/19 17:13 Miscellaneous Information (Consult) 1 ea N/A UD PRN PRN Reason: Consult Stop: 08/05/19 09:04 Ondansetron HCl (Zofran) 4 mg IV Q4H PRN PRN Reason: Nausea And Vomiting Stop: 08/03/19 17:13 Timolol Maleate (Timoptic 0.25% Oph) 1 drops OPB QAM [facility] Stop: 08/04/19 08:59 Last Admin: 07/06/19 08:44 Dose: 1 drops Documented by: (1) AMS (altered mental status) Altered mental status type: unspecified Qualified Code(s): R41.82 - Altered mental status, unspecified
[2019-07-06] MEDS ORDERED: VANCOMYCIN HCL 1,000 MG in SODIUM CHLORIDE 0.9% 250 ML IV ONE (09:30)
--- NOTE | 2019-07-06 09:42 | Pharmacy Report ---
Pharmacy Abx Initial Consult - Date of Service July 06, 2019 - Pharmacy Dosing Scope Date of Consult: 07/06/19 Consultation requested by: Dr. Mejia Pharmacy is consulted to initiate vancomycin and Zosyn IV dosing therapy, order appropriate labs and adjust drug dose/frequency. - Subjective The patient is a 84 year old F admitted on 07/04/19 16:05. - Objective Height: 5 ft Weight: 41.9 kg Vital Signs (Past 12hrs): Vital Signs Temp Pulse Pulse Resp BP Pulse Ox 07/06/19 07:57 59 L 07/06/19 07:25 36.0 C L 63 18 127/75 100 07/06/19 03:29 36.3 C L 67 19 119/57 L 99 07/06/19 01:58 66 07/06/19 00:00 36.5 C 82 18 130/72 99 Lab Results (24hrs): Laboratory Tests (24 Hours) 07/06/19 07/06/19 07/06/19 06:37 06:37 00:23 WBC 8.17 Creatinine 1.15 1.13 Est Cr Clr Drug Dosing 23.2 23.5 Micro Results: 07/04/19 19:30 Urine Culture - Final Urine,Indwelling Cath No growth - less than 1,000 colonies/mL. 07/04/19 14:35 Urine Culture - Final Urine,Straight Cath Lactobacillus species 07/04/19 19:17 Anaerobic Blood Culture - Final Blood - Risk Factors for Resistance * Hosp for 48hrs+w/in 90days, recently discharged from rehab facility (07/01/19) * Recent stroke (May 2019) now with swallowing difficulties - Assessment & Plan Assessment * 84 year old F receiving vancomycin and Zosyn for possible aspiration PNA Plan Vancomycin IV * Estimated PK Parameters: Vd 0.7 L/kg, Da 0.02 hr-1, t1/2 35 hr * Loading dose: 1000 mg (24 mg/kg) * Goal trough level: 15 to 20 mcg/mL * Given patient's impaired renal function, a random level will be obtained tomorrow 07/06 with AM labs and a subsequent dose of vancomycin will be ordered based upon that level Piperacillin/tazobactam * 3.375 g bolus administered over 30 minutes, then 3.375 g IV extended infusion every 8 hours for CrCl greater than 20 mL/min Pharmacy will continue to follow and will adjust dose/frequency as necessary. Thank you.
[2019-07-06] MEDS ORDERED: FUROSEMIDE 20 MG in SYRINGE 0 ML IV ONE (12:30)
--- NOTE | 2019-07-06 16:14 | Cardiology Consultation ---
Date of Consultation July 06, 2019 Assessment & Plan (1) Paroxysmal atrial fibrillation: (2) Acute systolic heart failure: I called and spoke to her family on the phone, her son Roverto, who lives on a farm adjacent to hers, as well as the patient's [id number], Roverto's . They have been taking care of her since her initial incident on 05/27 when she "fell" while home alone with a resultant humerus fracture. She was transitioned from her independent home, to Roverto's home and was there when she had the stroke episode on 06/02/2019. The patient also apparently has a history of a syncopal episode that took place in the [facility] parking lot in January,. When the patient had worsening symptoms yesterday, she was assessed by EMS at her family's home, and the initial plan was to take her to the local emergency room in [place],, or perhaps fly her directly to [facility] due to concerns of recurrent stroke, due to weather, air ambulance was not available, and ultimately she was transferred here by ground because it was the closest stroke center. It could very well be that the patient was having on and off again strokelike symptoms or other syncope related issues leading up to her recent significant right MCA territory stroke. The discharge summary from the rehab hospital describes that she has had waxing waning mental status, and recommended holding all sedating medications. The patient's family tells me that on , 3 days ago, she was home with family and mentating appropriately. At this time in terms of her encephalopathy, she is certainly at risk for nosocomial infection such as aspiration pneumonia or UTI, but I see no johnathon evidence of infection. And I think it is most prudent for us to provide ongoing supportive care and she recovers from her stroke, ongoing treatment for paroxysmal atrial fibrillation with metoprolol, and stroke prophylaxis with Ilda ojse having had stable neuro imaging this admission, and treat her for new onset congestive heart failure. Low-dose furosemide was administered today. We will plan on repeat dosing tomorrow. I believe her ejection fraction is in the range of 35 to 40%. Ongoing medical management recommended. She is already on losartan. She is on low-dose beta- patria, and she will need to be monitored in telemetry for potential bradycardia given her recent syncope in January,, and this fall episode that prompted her recent humerus fracture. Her family rightfully so, has lots of concern, and requests updates by phone. History of Present Illness Attending Physician: Alli Mejia MD History of Present Illness Janeen Fuentes is an 84 year old female seen in cardiology consultation per the request of Dr Mejia for the evaluation of congestive heart failure. History is obtained via review of records, as the patient is not an adequate historian given her current mental status. She has had a complex recent history dating back to 05/28/2019 when she suffered a left proximal humerus fracture. 06/02/2019 she developed slurred speech and left-sided weakness at home with her son and [id number] prompting evaluation at the [facility] ED. She was diagnosed with a right middle cerebral artery territory stroke and received TPA on 06/02/2019 followed by transfer to [facility]. Upon arrival she underwent emergent mechanical thrombectomy of R M2 occlusion and the discharge summary describes postoperative delirium. Post procedure MRI confirmed the presence of a right MCA territory stroke involving the temporal and parietal lobes. Per the discharge summary, paroxysmal atrial fibrillation with subsequent noted on telemetry. She was discharged on low-dose aspirin, with plans for follow-up initiation of Eliquis for stroke prophylaxis which was subsequently started earlier in Jun, 2019. She was subsequently admitted to [facility] from 06/10/2019 until 06/14/2019. She was then noted to [facility], [place], [place] from 06/14/2019 until 07/01/2019. The discharge summary reviewed in the patient' Epic record describes residual left hemiparesis as well as delirium for which all sedating medications were held and that her wakefulness was described as remaining "inconsistent". Discharge summary describes that hydrochlorothiazide was discontinued due to hyponatremia. The patient has minimum past cardiac history. She follows with Dr. Forbes in [place] with most recent visit in February 2019 for a history of hypertension, paroxysmal atrial tachycardia, premature atrial contractions, premature ve ntricular contractions, and remote history of scarlet fever. Most recent echocardiogram prior to recently had been in 2016 with normal LVEF. Report of echocardiogram dated 06/03/2019 at [facility] describes mild diffuse hypokinesis, with qualitative ejection fraction of 45 to 49%. Mild to moderate aortic valve regurgitation, mild mitral regurgitation, moderate tricuspid regurgitation noted. An echocardiogram was repeated yesterday 07/05/2019 at [place]. The report describes concern of LAD territory infarct with ejection fraction in the range of 35%. Per my personal interpretation, is felt that the images are technically difficult, and although in some views, LAD territory focal wall motion abnormality appears present, another views, it appears that mild global hypokinesis is present similar to previously documented with LV ejection fraction in the range of 35 to 40%, perhaps closer to 40%. At the time my assessment, the patient was receiving IV potassium supplementation as well as IV antibiotics. She was unable to provide any significant complaint or concern. Allergies Allergy/AdvReac Type Severity Reaction Status Date / Time No Known Allergies Allergy Unverified 07/04/19 15:23 Home Medications Home Medications Medication Instructions Recorded Confirmed Type apixaban [Eliquis] 2.5 mg PO BID 07/04/19 07/04/19 History aspirin 81 mg PO QAM 07/04/19 07/04/19 History atorvastatin 40 mg PO DAILY 07/04/19 07/04/19 History losartan 50 mg PO BID 07/04/19 07/04/19 History metoprolol tartrate 25 mg PO BID 07/04/19 07/04/19 History peg 400-propylene glycol (PF) 1 drp OPHTHALMIC (EYE) BID PRN 07/04/19 07/04/19 History [Systane (PF)] timolol maleate 1 drp OPB QAM 07/04/19 07/04/19 History Patient History Medical History Broken arm CVA (cerebral vascular accident) HLD (hyperlipidemia) HTN (hypertension) Paroxysmal atrial fibrillation Surgical History History of cataract surgery History of tonsillectomy and adenoidectomy Family History Father Hypertension Coronary heart disease Social History Preferred Language: Polish Health And Safety Director Required: No Beliefs That Will Affect Care: Orthodoxy marital status: / Current Living Situation: Family Current Living Situation Comment: Home Health Feels Safe at Home: Yes Smoking Status: Never smoker Second Hand Exposure: No ; Hx Alcohol Use: No Hx Substance Use: No Review of Systems Review of Systems: Unobtainable due to cognitive status Physical Exam Physical Exam: Temp Pulse Resp BP Pulse Ox 36.7 C 67 18 119/69 93 07/06/19 15:40 07/06/19 15:40 07/06/19 15:40 07/06/19 15:40 07/06/19 15:40 Constitutional: + ill appearing Respiratory: Decreased breath sounds bilaterally at the bases Cardiovascular: Heart Sounds: + murmur (1/6 systolic murmur) Gastrointestinal (Abdomen): normal bowel sounds, soft, nontender, no hepatosplenomegaly Neurologic: Left-sided hemiparesis, operative impairment. Results & Data ([facility]) Vital Signs (Past 12 Hours) Vital Signs Temp Pulse Pulse Resp BP Pulse Ox 07/06/19 09:54 36.6 C 99 07/06/19 07:57 59 L 07/06/19 07:25 36.0 C L 63 18 127/75 100 07/06/19 03:29 36.3 C L 67 19 119/57 L 99 07/06/19 01:58 66 07/06/19 00:00 36.5 C 82 18 130/72 99 Laboratory Results Troponin of 0.086, 0.090, 0.090 ng/ml. CBC 07/06/19 Range/Units 06:37 WBC 8.17 (4.8-10.8) K/uL RBC 4.16 L (4.2-5.4) M/uL Hgb 14.2 (12.0-16.0) g/dL Hct 43.5 (37-47) % Plt Count 255 (130-400) K/uL Comprehensive Metabolic Panel 07/06/19 07/06/19 Range/Units 00:23 06:37 Sodium 143 140 (136-145) mmol/L Potassium 3.2 L 3.4 L (3.5-5.1) mmol/L Chloride 103 101 (98-107) mmol/L Carbon Dioxide 29 30 (21-32) mmol/L BUN 25 H 25 H (7-18) mg/dl Creatinine 1.13 1.15 (0.6-1.2) mg/dl Glucose 114 H 100 H (70-99) mg/dl Calcium 9.1 9.6 (8.5-10.1) mg/dl Intake and Output 07/06/19 07/06/19 07/06/19 06:59 14:59 22:59 Intake Total 395 / 925 675 / 775 100 / 775 Output Total 125 / 1925 201 / 201 Balance 270 / -1000 474 / 574 100 / 574 Intake: IV 315 / 745 315 / 415 100 / 415 Zosyn 3.375 gm In D5 100 ml @ 115 / 345 115 / 115 28.75 mls/hr IV Q8H DANUTA Rx#: [id number] K RIDER / WTR 10 meq In 100 ml 200 / 200 200 / 300 100 / 300 @ 100 mls/hr IV Q1H DANUTA Rx#: [id number] Oral 80 / 180 360 / 360 Output: Urine Amount (Catheter) 125 5 200 / 200 Hearn/Indwelling 125 / 1925 200 / 200 # Bowel Movements Other: Weight 41.9 kg Diagnostic Findings EKG performed 07/04/2019 reviewed independently revealed normal sinus rhythm with poor R wave progression consistent with possible age-indeterminate anterior myocardial infarction. Compared to the prior study dated 06/05/2019 at [facility] sinus rhythm had replaced atrial fibrillation with rapid ventricular response. The poor R wave progression was noted on the June 05, 2019 EKG. -Historically, the poor of progression was also noted on 07/11/2018. -Poor R wave progression however had not been present on 10/15/2016.
[2019-07-07 06:20] LABS: Basophils # (auto) 0.02 K/uL (0-0.2); Basophils % (auto) 0.2 %; Eosinophils # (auto) 0.65 K/uL (0-0.5); Eosinophils % (auto) 7.4 %; Hematocrit (blood only) 45.1 % (37-47); Hemoglobin 14.5 g/dL (12.0-16.0); Immature Granulocytes # (auto) 0.02 K/uL (0.00-0.02); Immature Granulocytes % (auto) 0.2 %; Lymphocytes # (auto) 0.77 K/uL (1.2-3.4); Lymphocytes % (auto) 8.8 %; Mean Corpuscular Hemoglobin 33.6 pg (25-34); Mean Corpuscular Hgb Conc 32.2 g/dL (32-36); Mean Corpuscular Volume 104.4 fL (80-100); Mean Platelet Volume 10.4 fL (7.4-10.4); Monocytes # (auto) 0.87 K/uL (0.11-0.59); Monocytes % (auto) 9.9 %; Neutrophils # (auto) 6.46 K/uL (1.4-6.5); Neutrophils % (auto) 73.5 %; Platelet Count 265 K/uL (130-400); RDW Coefficient of Variation 16.3 % (11.5-14.5); RDW Standard Deviation 62.3 fL (36.4-46.3); Red Blood Count 4.32 M/uL (4.2-5.4); White Blood Count 8.79 K/uL (4.8-10.8)
[2019-07-07 07:06] LABS: BUN Creatinine Ratio 23.7 (10-20); Calcium 9.1 mg/dl (8.5-10.1); Creatinine Clr Calc Pharmacy 30.1 ml/min; Est GFR (African American) 66.2; Est GFR (Non-African American) 57.1; Potassium 3.6 mmol/L (3.5-5.1)
[2019-07-07] MEDS ORDERED: POTASSIUM CHLORIDE 20 MEQ TABCR PO STA (07:27)
[2019-07-07] MEDS: LOSARTAN POTASSIUM 50 MG TAB PO SCH ×2 (08:02→20:31)
[2019-07-07] MEDS: METOPROLOL TARTRATE 25 MG TAB PO SCH ×2 (08:02→20:32)
[2019-07-07] MEDS: APIXABAN 2.5 MG TAB PO SCH ×2 (08:02→20:31)
[2019-07-07] MEDS: ASPIRIN 81 MG ECTAB PO SCH (08:02)
[2019-07-07] MEDS: TIMOLOL MALEATE 0.25% OP SOLN 5 ML BTL OPB SCH (08:03)
[2019-07-07 08:32] LABS: Magnesium 2.2 mg/dl (1.8-2.4)
[2019-07-07] MEDS: ATORVASTATIN 40 MG TAB PO SCH (08:32)
--- NOTE | 2019-07-07 08:33 | Hospitalist Progress Note ---
Date of Service July 07, 2019 Assessment & Plan (1) AMS (altered mental status): (2) Encephalopathy: Pt with reported AMS. It is reported a nurse noted pt to be anxious at home and Ativan was given. Reported pt had altered mental status. Patient presents w/encephalopathy which could be toxic from recent lorazepam use at home according to the family, could be metabolic from aspiration pneumonia or urinary tract infection present on admission as she has had preceding symptoms at home. Patient will be given Zosyn therapy blood cultures and urine cultures will be sent no further benzodiazepines abuse if able. In ER reported non-focal exam findings, had CT head and a CTA head which were unremarkable with exception of her old MCA territory stroke. CXR: Cardiomegaly with suspected volume overload and congestive change. Bibasilar opacities right greater than left. Bilateral pleural effusions. No leukocytosis, lactate: 2.5, troponin: 0.086, UA trace leuk esterace, >30 WBC without bacteria Was given Rocephin in ER She was started on Zosyn, Lasix 20mg IV x 1 dose (3) Congestive heart failure: Acute CHF exacerbation CXR: Cardiomegaly with suspected volume overload and congestive change. Bibasilar opacities right greater than left. Bilateral pleural effusions. Trop. mildly elevated. Received 20 mg IV lasix on admission - diuresed well overnight, pro-BNP obtained after admission, significantly elev ated, over 35,000, was given additional 20 mg IV lasix for next 2 days - Echo (07/04) Left ventricle grossly normal in size, mild concentric LVH. LV systolic function moderately reduced, EF 35%. Mid to distal anterior wall apex and inferior apex and septum and anterior septum are akinetic, this is consistent with prior LAD infarct. Left atrium severely dilated. RV systolic pressure elevated at 30-40. Diastolic dysfunction grade 2, consistent with elevated left atrial pressure. - telemetry reviewed, pt in sinus rhythm - monitor weight, I/Os - weaned off supplemental O2, currently on room air - repeat CXR this AM shows improved, edema - Cardiology consulted, appreciate their input, plan for additional IV Lasix Hypokalemia - secondary to diuretic use -replace and monitor (4) Aspiration pneumonia: Reportedly patient has a history of swallowing difficulties at home typically with crushed medications and taking pudding. Right lower lobe changes seen on x-ray Speech evaluation ordered Zosyn to cover any infectious etiologies although currently her white blood cell count is low Given elevated BNP, changes on x-ray likely due to pulmonary edema, will DC antibiotics (5) Elevated lactic acid level: - resolved - Multifactorial possibly from infectious or possibly could be from congestive change seen on imaging (6) Elevated troponin: - likely secondary to decompensated HF - treatment as above (7) CVA (cerebral vascular accident): Initial concern for recurrent stroke may have been clouded by administration of lorazepam at home. Patient has no acute stroke seen on initial imaging nor aneurysm or occlusion seen on angiogram. Pt with recent acute ischemic right MCA stroke on 06/02/2019 and received TPA and was transferred to [facility]. At [facility] she had thrombectomy of right M2 occlusion. Pt on pureed diet, thin liquids, requires pills to be crushed -CT and CTA obtained on this admission - no new CVA -discussed with Dr. Moss (neurology), likely no benefit from more imaging such as MRI -cont. aspirin, eliquis, atorvastatin -aspiration precautions -Speech consult (8) Paroxysmal atrial fibrillation: Developed atrial fibrillation post op in 05/2019 Current sinus rhythm -Eliquis, metoprolol tartrate (9) Humerus fracture: Reportedly sustained a proximal left humeral fracture with her stroke on June 01. Will provide a sling. Orthopedics consulted - recommend to follow-up as outpatient, currently no inpatient procedures planned (10) HTN (hypertension): - cont. metoprolol 25 BID and losartan 50 daily (11) DVT prophylaxis: - cont. home Eliquis 2.5 twice daily Admission and Anticipated Discharge Date Admission Date: July 04, 2019 Subjective Patient is lying in bed, compared to my prior exam patient is currently awake and actually verbal, saying that she does not want to be in hospital and she wants to be at home. Denies any fevers, chills, chest pain, shortness of breath, abdominal pain, nausea or vomiting. She was complaining of some foot pain however she is moving her feet without difficulty and she has no sensory loss in her feet. She said that she wanted her pillow to be propped better. Family communication I had a prolonged discussion with patient's [id number] Bria, updating her on current clinical status and discharge planning. We discussed her prior hospitalizations as well. Giselle is wondering if patient should come home on hospice. She says that she has experience with her parents who were on hospice and is familiar with it. She was interested in consulting palliative medicine, which I did. She is also expecting to discuss further with case management and cardiology. Review of Systems Review of Systems: All systems reviewed & are unremarkable except as noted in HPI & below Constitutional: no fever and no chills Respiratory: no cough and no dyspnea Cardiovascular: no chest pain and no palpitations Gastrointestinal: no abdominal pain, no nausea and no vomiting Physical Exam Physical Exam: General: elderly thin female lying in bed, in NAD, +ill appearing, compared to prior exam, patient is now awake and verbal HEENT: normocephalic, atraumatic, no scleral icterus Neck: supple Resp: decreased lung sounds Cardiac: regular, soft syst. murmur Abdomen: normal bowel sounds, soft nontender, no masses, nondistended Extremities: ecchymosis to the proximal left arm with deformity and decreased mobility Neuro: Awake, oriented to herself, and place, able to answer simple questions appropriately, speech seems fluent, limited left arm use Skin: warm, dry, no rashes, +bruising noted to left upper arm Results & Data Results & Data ([facility]) Vital Signs (Past 12 Hours) Vital Signs Temp Pulse Pulse Resp BP Pulse Ox 07/07/19 07:47 36.8 C 64 18 146/77 H 94 07/06/19 23:13 69 07/06/19 23:00 34.6 C L 64 20 146/89 H 94 Laboratory Results 07/07/19 07/07/19 07/07/19 Range/Units 06:10 06:00 06:00 WBC 8.79 (4.8-10.8) K/uL RBC 4.32 (4.2-5.4) M/uL Hgb 14.5 (12.0-16.0) g/dL Hct 45.1 (37-47) % MCV 104.4 H (80-100) fL MCH 33.6 (25-34) pg MCHC 32.2 (32-36) g/dL RDW Std Deviation 62.3 H (36.4-46.3) fL RDW Coeff of Brii 16.3 H (11.5-14.5) % Plt Count 265 (130-400) K/uL MPV 10.4 (7.4-10.4) fL Immature Gran % (Auto) 0.2 % Neut % (Auto) 73.5 % Lymph % (Auto) 8.8 % [place] % (Auto) 9.9 % Eos % (Auto) 7.4 % Baso % (Auto) 0.2 % Immature Gran # (Auto) 0.02 (0.00-0.02) K/uL Neut # (Auto) 6.46 (1.4-6.5) K/uL Lymph # (Auto) 0.77 L (1.2-3.4) K/uL [place] # (Auto) 0.87 H (0.11-0.59) K/uL Eos # (Auto) 0.65 H (0-0.5) K/uL Baso # (Auto) 0.02 (0-0.2) K/uL Sodium 140 (136-145) mmol/L Potassium 3.6 (3.5-5.1) mmol/L Chloride 105 (98-107) mmol/L Carbon Dioxide 28 (21-32) mmol/L Anion Gap 7.0 (3-11) BUN 21 H (7-18) mg/dl Creatinine 0.91 (0.6-1.2) mg/dl Est Cr Clr Drug Dosing 30.1 ml/min Est GFR ( Amer) 66.2 Est GFR (Non-Af Amer) 57.1 BUN/Creatinine Ratio 23.7 H (10-20) Glucose 84 (70-99) mg/dl Calcium 9.1 (8.5-10.1) mg/dl Magnesium Pending NT-Pro-B Natriuret Pep Pending Nasal Screen MRSA (PCR) (Negative) 07/06/19 Range/Units 12:53 WBC (4.8-10.8) K/uL RBC (4.2-5.4) M/uL Hgb (12.0-16.0) g/dL Hct (37-47) % MCV (80-100) fL MCH (25-34) pg MCHC (32-36) g/dL RDW Std Deviation (36.4-46.3) fL RDW Coeff of Brii (11.5-14.5) % Plt Count (130-400) K/uL MPV (7.4-10.4) fL Immature Gran % (Auto) % Neut % (Auto) % Lymph % (Auto) % [place] % (Auto) % Eos % (Auto) % Baso % (Auto) % Immature Gran # (Auto) (0.00-0.02) K/uL Neut # (Auto) (1.4-6.5) K/uL Lymph # (Auto) (1.2-3.4) K/uL [place] # (Auto) (0.11-0.59) K/uL Eos # (Auto) (0-0.5) K/uL Baso # (Auto) (0-0.2) K/uL Sodium (136-145) mmol/L Potassium (3.5-5.1) mmol/L Chloride (98-107) mmol/L Carbon Dioxide (21-32) mmol/L Anion Gap (3-11) BUN (7-18) mg/dl Creatinine (0.6-1.2) mg/dl Est Cr Clr Drug Dosing ml/min Est GFR ( Amer) Est GFR (Non-Af Amer) BUN/Creatinine Ratio (10-20) Glucose (70-99) mg/dl Calcium (8.5-10.1) mg/dl Magnesium NT-Pro-B Natriuret Pep Nasal Screen MRSA (PCR) Negative (Negative) Medications Administered Current Inpatient Medications Acetaminophen (Tylenol) 650 mg PO Q4H PRN PRN Reason: Moderate Pain Stop: 08/03/19 17:13 Last Admin: 07/06/19 12:46 Dose: 650 mg Documented by: Apixaban (Eliquis) 2.5 mg PO BID [facility] Stop: 08/03/19 20:59 Last Admin: 07/07/19 08:02 Dose: 2.5 mg Documented by: Artificial Tears (Artificial Tears) 1 drops OP BID PRN PRN Reason: DRY EYES Stop: 08/03/19 20:08 Aspirin (Ecotrin Ectab) 81 mg PO QAM [facility] Stop: 08/04/19 08:59 Last Admin: 07/07/19 08:02 Dose: 81 mg Documented by: Atorvastatin Calcium (Lipitor) 40 mg PO DAILY [facility] Stop: 08/04/19 08:59 Last Admin: 07/07/19 08:32 Dose: 40 mg Documented by: Losartan Potassium (Cozaar) 50 mg PO BID [facility] Stop: 08/03/19 20:59 Last Admin: 07/07/19 08:02 Dose: 50 mg Documented by: Metoprolol Tartrate (Lopressor) 12.5 mg PO BID [facility] Stop: 08/04/19 08:59 Last Admin: 07/07/19 08:02 Dose: 12.5 mg Documented by: Miscellaneous Information (Consult) 1 ea N/A UD PRN PRN Reason: Consult Stop: 08/05/19 09:04 Ondansetron HCl (Zofran) 4 mg IV Q4H PRN PRN Reason: Nausea And Vomiting Stop: 08/03/19 17:13 Timolol Maleate (Timoptic 0.25% Oph) 1 drops OPB QAM [facility] Stop: 08/04/19 08:59 Last Admin: 07/07/19 08:03 Dose: 1 drops Documented by: (1) AMS (altered mental status) Altered mental status type: unspecified Qualified Code(s): R41.82 - Altered mental status, unspecified
--- NOTE | 2019-07-07 10:00 | Cardiology Progress Note ---
Date of Service July 07, 2019 Assessment & Plan (1) Paroxysmal atrial fibrillation: (2) CVA (cerebral vascular accident): The patient appears to be comfortable. I reviewed her telemetry and she is maintaining sinus rhythm. Subjective The patient appears comfortable but is nonverbal. Review of Systems Review of Systems: All systems reviewed & are unremarkable except as noted in HPI & below Nothing additional to add. Physical Exam Physical Exam: General: no acute distress and stated age Head: normocephalic, no masses, lesions, tenderness or abnormalities Eyes: conjunctiva are pink and non-injected, sclera clear Neck: supple, no adenopathy, no bruits, normal jugular venous pulse, no hepatojugular reflux Chest: normal shape and normal respiratory effort Lungs: clear to auscultation and percussion Cardiac Exam: - regular rate & rhythm, no murmurs gallops or rubs - normal S1, normal S2 Pulses: 2(+) throughout Abdomen: abdomen soft, non-tender, no abnormal masses and no hepatosplenomegaly Musculoskeletal: no gait disturbance, no joint inflammation, no deforming arthritis Extremities: no edema and no cyanosis Neuro: grossly normal exam Results & Data Vital Signs (Past 12 Hours) Vital Signs Temp Pulse Pulse Resp BP Pulse Ox 07/07/19 07:47 36.8 C 64 18 146/77 H 94 07/06/19 23:13 69 07/06/19 23:00 34.6 C L 64 20 146/89 H 94 Laboratory Results Laboratory Results - last 24 hr 07/06/19 07/07/19 07/07/19 12:53 06:00 06:00 WBC 8.79 RBC 4.32 Hgb 14.5 Hct 45.1 MCV 104.4 H MCH 33.6 MCHC 32.2 RDW Std Deviation 62.3 H RDW Coeff of Brii 16.3 H Plt Count 265 MPV 10.4 Immature Gran % (Auto) 0.2 Neut % (Auto) 73.5 Lymph % (Auto) 8.8 [place] % (Auto) 9.9 Eos % (Auto) 7.4 Baso % (Auto) 0.2 Immature Gran # (Auto) 0.02 Neut # (Auto) 6.46 Lymph # (Auto) 0.77 L [place] # (Auto) 0.87 H Eos # (Auto) 0.65 H Baso # (Auto) 0.02 Sodium 140 Potassium 3.6 Chloride 105 Carbon Dioxide 28 Anion Gap 7.0 BUN 21 H Creatinine 0.91 Est Cr Clr Drug Dosing 30.1 Est GFR ( Amer) 66.2 Est GFR (Non-Af Amer) 57.1 BUN/Creatinine Ratio 23.7 H Glucose 84 Calcium 9.1 Magnesium NT-Pro-B Natriuret Pep Nasal Screen MRSA (PCR) Negative 07/07/19 06:10 WBC RBC Hgb Hct MCV MCH MCHC RDW Std Deviation RDW Coeff of Brii Plt Count MPV Immature Gran % (Auto) Neut % (Auto) Lymph % (Auto) [place] % (Auto) Eos % (Auto) Baso % (Auto) Immature Gran # (Auto) Neut # (Auto) Lymph # (Auto) [place] # (Auto) Eos # (Auto) Baso # (Auto) Sodium Potassium Chloride Carbon Dioxide Anion Gap BUN Creatinine Est Cr Clr Drug Dosing Est GFR ( Amer) Est GFR (Non-Af Amer) BUN/Creatinine Ratio Glucose Calcium Magnesium 2.2 NT-Pro-B Natriuret Pep 6508 H Nasal Screen MRSA (PCR) Medications Administered Current Inpatient Medications Acetaminophen (Tylenol) 650 mg PO Q4H PRN PRN Reason: Moderate Pain Stop: 08/03/19 17:13 Last Admin: 07/06/19 12:46 Dose: 650 mg Documented by: Apixaban (Eliquis) 2.5 mg PO BID [facility] Stop: 08/03/19 20:59 Last Admin: 07/07/19 08:02 Dose: 2.5 mg Documented by: Artificial Tears (Artificial Tears) 1 drops OP BID PRN PRN Reason: DRY EYES Stop: 08/03/19 20:08 Aspirin (Ecotrin Ectab) 81 mg PO QAM [facility] Stop: 08/04/19 08:59 Last Admin: 07/07/19 08:02 Dose: 81 mg Documented by: Atorvastatin Calcium (Lipitor) 40 mg PO DAILY [facility] Stop: 08/04/19 08:59 Last Admin: 07/07/19 08:32 Dose: 40 mg Documented by: Losartan Potassium (Cozaar) 50 mg PO BID [facility] Stop: 08/03/19 20:59 Last Admin: 07/07/19 08:02 Dose: 50 mg Documented by: Metoprolol Tartrate (Lopressor) 12.5 mg PO BID [facility] Stop: 08/04/19 08:59 Last Admin: 07/07/19 08:02 Dose: 12.5 mg Documented by: Miscellaneous Information (Consult) 1 ea N/A UD PRN PRN Reason: Consult Stop: 08/05/19 09:04 Ondansetron HCl (Zofran) 4 mg IV Q4H PRN PRN Reason: Nausea And Vomiting Stop: 08/03/19 17:13 Timolol Maleate (Timoptic 0.25% Oph) 1 drops OPB QAM [facility] Stop: 08/04/19 08:59 Last Admin: 07/07/19 08:03 Dose: 1 drops Documented by:
[2019-07-07] MEDS ORDERED: FUROSEMIDE 10 MG in SYRINGE 0 ML IV ONE (15:15)
[2019-07-07] MEDS ORDERED: ACETAMINOPHEN SUSP 325 MG/10.15 ML UDC PO PRN (15:24)
[2019-07-07] MEDS ORDERED: ACETAMINOPHEN SUSP 325 MG/10.15 ML UDC PO STA (15:24)
[2019-07-08 07:56] LABS: Calcium 9.9 mg/dl (8.5-10.1); Est GFR (Non-African American) 63.9; Magnesium 2.4 mg/dl (1.8-2.4); Phosphorus 2.9 mg/dl (2.5-4.9); Potassium 3.7 mmol/L (3.5-5.1)
--- NOTE | 2019-07-08 09:00 | Hospitalist Progress Note ---
Date of Service July 08, 2019 Assessment & Plan (1) AMS (altered mental status): (2) Encephalopathy: Pt with reported AMS. It is reported a nurse noted pt to be anxious at home and Ativan was given. Reported pt had altered mental status. Patient presents w/encephalopathy which could be toxic from recent lorazepam use at home according to the family, could be metabolic from aspiration pneumonia or urinary tract infection present on admission as she has had preceding symptoms at home. Patient will be given Zosyn therapy blood cultures and urine cultures will be sent no further benzodiazepines abuse if able. In ER reported non-focal exam findings, had CT head and a CTA head which were unremarkable with exception of her old MCA territory stroke. CXR: Cardiomegaly with suspected volume overload and congestive change. Bibasilar opacities right greater than left. Bilateral pleural effusions. No leukocytosis, lactate: 2.5, troponin: 0.086, UA trace leuk esterace, >30 WBC without bacteria Was given Rocephin in ER She was started on Zosyn, Lasix 20mg IV x 1 dose (3) Congestive heart failure: Acute CHF exacerbation CXR: Cardiomegaly with suspected volume overload and congestive change. Bibasilar opacities right greater than left. Bilateral pleural effusions. Trop. mildly elevated. Received 20 mg IV lasix on admission - diuresed well overnight, pro-BNP obtained after admission, significantly elev ated, over 35,000, was given additional 20 mg IV lasix for next couple of days - Echo (07/04) Left ventricle grossly normal in size, mild concentric LVH. LV systolic function moderately reduced, EF 35%. Mid to distal anterior wall apex and inferior apex and septum and anterior septum are akinetic, this is consistent with prior LAD infarct. Left atrium severely dilated. RV systolic pressure elevated at 30-40. Diastolic dysfunction grade 2, consistent with elevated left atrial pressure. - telemetry reviewed, pt in sinus rhythm - monitor weight, I/Os - weaned off supplemental O2, currently on room air - repeat CXR this AM shows improved edema - Cardiology consulted, appreciate their input, plan for additional IV Lasix - Pt to be d/c 'ed on home hospice, recommend to d/c on furosemide 20 mg PO as long as she can take PO meds Hypokalemia - secondary to diuretic use -replace and monitor (4) Aspiration pneumonia: Reportedly patient has a history of swallowing difficulties at home typically with crushed medications and taking pudding. Right lower lobe changes seen on x-ray Speech evaluation ordered Zosyn to cover any infectious etiologies although currently her white blood cell count is low Given elevated BNP, changes on x-ray likely due to pulmonary edema, will DC antibiotics (5) Elevated lactic acid level: - resolved - Multifactorial possibly from infectious or possibly could be from congestive change seen on imaging (6) Elevated troponin: - likely secondary to decompensated HF - treatment as above (7) CVA (cerebral vascular accident): Initial concern for recurrent stroke may have been clouded by administration of lorazepam at home. Patient has no acute stroke seen on initial imaging nor aneurysm or occlusion seen on angiogram. Pt with recent acute ischemic right MCA stroke on 06/02/2019 and received TPA and [place] [facility] [facility] [place] thrombectomy of right M2 occlusion. Pt on pureed diet, thin liquids, requires pills to be crushed -CT and CTA obtained on this admission - no new CVA -discussed with Dr. Moss (neurology), likely no benefit from more imaging such as MRI -cont. aspirin, eliquis, atorvastatin -aspiration precautions -Speech consult (8) Paroxysmal atrial fibrillation: Developed atrial fibrillation post op in 05/2019 Current sinus rhythm -Eliquis, metoprolol tartrate - discussed w/cardiology, even when pt leaves on hospice would recommend to cont. Eliquis as long as she is safe to take her home med (9) Humerus fracture: Reportedly sustained a proximal left humeral fracture with her stroke on June 01. Will provide a sling. Orthopedics consulted - recommend to follow-up as outpatient, currently no inpatient procedures planned (10) HTN (hypertension): - cont. metoprolol 25 BID and losartan 50 daily (11) DVT prophylaxis: - cont. home Eliquis 2.5 twice daily Burning sensation in pt's feet - likely secondary to neuropathy / PVD - will start 100 mg gabapentin TID prn - also continue liquid tylenol for pain/ discomfort as pt seems to respond well to that (12) Goals of care, counseling/discussion: I had a prolonged discussion with pt's PARISA Fraser yesterday, updated her on current clinical progress and also reviewed her prior hospital admissions. Family does not wish to keep coming back to the hospital and is interested in possible hospice care. Palliative medicine was consulted and discussed the options with family. Currently decided for home hospice. Admission and Anticipated Discharge Date Admission Date: July 04, 2019 Subjective No acute events overnight. Pt is lying in bed, in NAD, quite somnolent, answers some questions appropriately. Denies any fever, chills, chest pain, shortness of breath, abd. pain. Reports burning sensation in her feet. Communication w/ family. I had a prolonged discussion with pt's PARISA Fraser yesterday, updated her on current clinical progress and also reviewed her prior hospital admissions. Family does not wish to keep coming back to the hospital and is interested in possible hospice care. Palliative medicine was consulted and discussed the options with family. Currently decided for home hospice. Review of Systems Review of Systems: Unobtainable due to cognitive status and Other pt denies any fever, chills, chest pain, or shortness of breath, or abd. pain, complains of burning sensation in her feet pt quite somnolent to answer all questions Constitutional: no fever and no chills Respiratory: no cough and no dyspnea Cardiovascular: no chest pain and no palpitations Gastrointestinal: no abdominal pain, no nausea and no vomiting Physical Exam Physical Exam: General: elderly thin female lying in bed, in NAD, +ill appearing HEENT: normocephalic, atraumatic, no scleral icterus Neck: supple Resp: CTAB Cardiac: regular, soft syst. murmur Abdomen: normal bowel sounds, soft nontender, no masses, nondistended Extremities: ecchymosis to the proximal left arm with deformity and decreased mobility, moves lower extremities spontaneously, no LE edema, feet/toes cold only soft pulses b/l, heels covered to protect the skin Neuro: more somnolent today but arousable, oriented to herself, and place, able to answer simple questions appropriately, speech seems fluent, but very soft and limited, limited left arm use Skin: warm, dry, no rashes, +bruising noted to left upper arm Results & Data Results & Data ([facility]) Vital Signs (Past 12 Hours) Vital Signs Temp Pulse Pulse Resp BP Pulse Ox 07/08/19 08:05 69 18 131/78 99 07/08/19 03:07 36.4 C L 69 18 124/81 93 07/07/19 22:56 36.4 C L 65 17 131/70 95 07/07/19 22:21 36.4 C L 68 16 118/70 97 07/07/19 22:20 63 Laboratory Results 07/08/19 Range/Units 06:37 Sodium 140 (136-145) mmol/L Potassium 3.7 (3.5-5.1) mmol/L Chloride 107 (98-107) mmol/L Carbon Dioxide 26 (21-32) mmol/L Anion Gap 7.0 (3-11) BUN 23 H (7-18) mg/dl Creatinine 0.83 (0.6-1.2) mg/dl Est Cr Clr Drug Dosing 33.0 ml/min Est GFR ( Amer) 74.0 Est GFR (Non-Af Amer) 63.9 BUN/Creatinine Ratio 27.0 H (10-20) Glucose 85 (70-99) mg/dl Calcium 9.9 (8.5-10.1) mg/dl Phosphorus 2.9 (2.5-4.9) mg/dl Magnesium 2.4 (1.8-2.4) mg/dl Medications Administered Current Inpatient Medications Acetaminophen (Tylenol) 650 mg PO Q4H PRN PRN Reason: Moderate Pain Stop: 08/03/19 17:13 Last Admin: 07/06/19 12:46 Dose: 650 mg Documented by: Acetaminophen (Tylenol Susp) 650 mg PO Q4H PRN PRN Reason: pain Stop: 08/06/19 15:23 Last Admin: 07/07/19 20:33 Dose: 650 mg Documented by: Apixaban (Eliquis) 2.5 mg PO BID [facility] Stop: 08/03/19 20:59 Last Admin: 07/07/19 20:31 Dose: 2.5 mg Documented by: Artificial Tears (Artificial Tears) 1 drops OP BID PRN PRN Reason: DRY EYES Stop: 08/03/19 20:08 Aspirin ([facility]rin [facility]ab) [facility] Stop: 08/04/19 08:59 Last Admin: 07/07/19 08:02 Dose: 81 mg Documented by: Atorvastatin Calcium (Lipitor) 40 mg PO DAILY [facility] Stop: 08/04/19 08:59 Last Admin: 07/07/19 08:32 Dose: 40 mg Documented by: Losartan Potassium (Cozaar) 50 mg PO BID [facility] Stop: 08/03/19 20:59 Last Admin: 07/07/19 20:31 Dose: 50 mg Documented by: Metoprolol Tartrate (Lopressor) 12.5 mg PO BID [facility] Stop: 08/04/19 08:59 Last Admin: 07/07/19 20:32 Dose: 12.5 mg Documented by: Miscellaneous Information (Consult) 1 ea N/A UD PRN PRN Reason: Consult Stop: 08/05/19 09:04 Ondansetron HCl (Zofran) 4 mg IV Q4H PRN PRN Reason: Nausea And Vomiting Stop: 08/03/19 17:13 Timolol Maleate (Timoptic 0.25% Oph) 1 drops OPB QAM [facility] Stop: 08/04/19 08:59 Last Admin: 07/07/19 08:03 Dose: 1 drops Documented by: (1) AMS (altered mental status) Altered mental status type: unspecified Qualified Code(s): R41.82 - Altered mental status, unspecified
--- NOTE | 2019-07-08 09:09 | Palliative Care Consultation ---
Date of Consultation July 08, 2019 Assessment & Plan (1) Goals of care, counseling/discussion: -84 year old female patient with PMH recent right MCA stroke, recent left humerus fracture, paroxysmal afib, and others, presented to the hospital four days ago with c/o altered mental status and concerns of recurrent stroke. Patient recently had significant hospitalization: on 05/24 had a fall at home and broke her left humerus. On 06/01, was found to have slurred speech and left sided weakness. She was taken to [facility] where she was found to have acute right MCA stroke, she received tPA, and was sent to [facility] for thrombectomy. She was hospitalized from 06/01-06/09, then sent to [facility] for "respite" care from 06/09-06/13, then sent to rehab facility in [place], [place], from 06/13-06/30. Hospitalization was complicated by afib, delirium, congestive failure, electrolyte imbalances and poor appetite. At rehab center, patient apparently had poor oral intake requiring IVF. She was started on mirtazapine in the hospital which was discontinued at rehab center. Patient was taking pureed food, thin liquids and crushed meds. She was eventually discharged to home with the help of family. Family reported some urinary symptoms, increased pain in left arm, and difficulty caring for her. Per report, they asked for a home health nurse, but a hospice nurse was sent to the home. Patient was having increased pain and some anxiety, the hospice nurse apparently gave some lorazepam. Patient's mental status worsened, prompting family to call 911. For concern of recurrent stroke, baldemar was brought to [facility]. In ED, exam was non-focal. Patient already on Eliquis and ASA. CXR showed cardiomegaly and volume overload. Lasix given. Troponin slightly elevated. Neurology consulted-- stated that MRI could be obtained if family strongly wished to have this done, but it would not change patient's treatment. Ortho consulted for the left humerus fracture-- stated to continue sling and f/u as outpatient. Cardiology consulted-- recommends continuation of her losartan, beta-patria and monitoring on telemetry for bradycardia. Echo obtained-- gas main and line fitter estimates her EF to be 35-40%. Family has been caring for patient at home-- two sons/POAung Layne and Yossi, as well as Roverto's Bria. They also have 24/7 in-home care through private agency. PT/OT have seen patient and state she has good rehab potential-- recommend going home with 24/7 care and continued therapy. Family has questions about home health vs. hospice. Palliative care is consulted to discuss goals of care. -Case management notes reviewed, spoke with attending physician. Again, two sons and a DIL are caring for patient at home as well as 24/7 care through a caregiver agency. PT/OT are recommending patient return home with 24/7 care and continued home health. -Attending physician spoke with patient's DIL, Bria, yesterday. Bria had many questions about patient's stroke, heart failure, what to expect in the future, whether or not patient should be on hospice, etc. This is what prompted the the [facility] care consult-- to assist family with deciding goals of care. -Attempted to call two numbers for Bria and Juan Antonio, no answer. Will try again later. -Given patient's age and comorbidities such as CVA with residual deficits and heart failure, she has high risk of exacerbation and recurrent hospitalizations. However, she reportedly does have a high potential for some rehab/recovery. It is patient/family's preference at this point as to what the goal is. Depends on what patient/family perceive as good quality of life for the patient and how she is doing at home. Also depends on when/if her heart failure exacerbates and whether or not they want to continue sending her to the hospital each time something happens. -At this time, we are recommending patient go home with 24/7 care and home health. Per case management's note, the family chose [facility] for their agency-- they also have an excellent hospice program. Patient can transition to hospice if she plateaus or worsens at home, or if she continues to have medical issues causing deteriorating condition. The [facility] could easily have a network liaison come into the patient's home to speak with family together so they can learn more about hospice and their philosophy. -Patient to be seen and examined by palliative MD this afternoon. Any further recommendations to follow. Again, will try to reach family to provide support. -Thanks for this consult. (2) CVA (cerebral vascular accident): (3) Congestive heart failure: (4) Humerus fracture: Supervising Physician Co-Signing Physician Notes Chart reviewed, patient seen and examined. Collaborated with SCOTT Magdaleno as well as Dr. Mejia and case management Spoke with patient's son, Roverto, regarding goals of care. Family wishes not to have patient return to the hospital anymore, discussed that given her stroke in addition to her heart failure she would be hospice appropriate. Patient is currently a DO NOT RESUSCITATE. PE: Patient awake, right gaze preference, left facial droop, patient nonverbal on exam HEENT: Right gaze preference Respirations: Unlabored, clear breath sounds CV: Regular rate Abdomen: Soft, nontender Neuro: Patient with expressive aphasia, dense left-sided hemiparesis, right- sided weakness Musculoskeletal-patient has a left humerus fracture Agree with above note, assessment and plan as per SCOTT Magdaleno. Spoke with patient's son at length regarding home health versus hospice. Family does not wish her to keep returning to the hospital-informed son that hospice can have a PT OT evaluation, they do not do therapy in the home but can evaluate and help the family manage her left humeral fracture. History of Present Illness Attending Physician: Alli Mejia MD History of Present Illness This 84 year old female patient with PMH recent right MCA stroke, recent left humerus fracture, paroxysmal afib, and others, presented to the hospital four days ago with c/o altered mental status and concerns of recurrent stroke. Patient recently had significant hospitalization: on 05/24 had a fall at home and broke her left humerus. On 06/01, was found to have slurred speech and left sided weakness. She was taken to [facility] where she was found to have acute right MCA stroke, she received tPA, and was sent to [facility] for thrombectomy. She was hospitalized from 06/01-06/09, then sent to [facility] for "respite" care from 06/09-06/13, then sent to rehab facility in [place], [place], from 06/13-06/30. Hospitalization was complicated by afib, delirium, congestive failure, electrolyte imbalances and poor appetite. At rehab center, patient apparently had poor oral intake requiring IVF. She was started on mirtazapine in the hospital which was discontinued at rehab center. Patient was taking pureed food, thin liquids and crushed meds. She was eventually discharged to home with the help of family. Family reported some urinary symptoms, increased pain in left arm, and difficulty caring for her. Per report, they asked for a home health nurse, but a hospice nurse was sent to the home. Patient was having increased pain and some anxiety, the hospice nurse apparently gave some lorazepam. Patient's mental status worsened, prompting family to call 911. For concern of recurrent stroke, baldemar was brought to [facility]. In ED, exam was non-focal. Patient already on Eliquis and ASA. CXR showed cardiomegaly and volume overload. Lasix given. Troponin slightly elevated. Neurology consulted-- stated that MRI could be obtained if family strongly wished to have this done, but it would not change patient's treatment. Ortho consulted for the left humerus fracture-- stated to continue sling and f/u as outpatient. Cardiology consulted-- recommends continuation of her losartan, beta-patria and monitoring on telemetry for bradycardia. Echo obtained-- gas main and line fitter estimates her EF to be 35-40%. Family has been caring for patient at home-- two sons/POAs Roverto and Yossi, as well as Roverto's Bria. They also have 24/7 in-home care through private agency. PT/OT have seen patient and state she has good rehab potential-- recommend going home with 24/7 care and continued therapy. Family has questions about home health vs. hospice. Palliative care is consulted to discuss goals of care. Thank you kindly for this consult. Palliative care team will follow as needed. Allergies Allergy/AdvReac Type Severity Reaction Status Date / Time No Known Allergies Allergy Unverified 07/04/19 15:23 Home Medications Home Medications Medication Instructions Recorded Confirmed Type apixaban [Eliquis] 2.5 mg PO BID 07/04/19 07/04/19 History aspirin 81 mg PO QAM 07/04/19 07/04/19 History atorvastatin 40 mg PO DAILY 07/04/19 07/04/19 History losartan 50 mg PO BID 07/04/19 07/04/19 History metoprolol tartrate 25 mg PO BID 07/04/19 07/04/19 History peg 400-propylene glycol (PF) 1 drp OPHTHALMIC (EYE) BID PRN 07/04/19 07/04/19 History [Systane (PF)] timolol maleate 1 drp OPB QAM 07/04/19 07/04/19 History Patient History Medical History Broken arm CVA (cerebral vascular accident) HLD (hyperlipidemia) HTN (hypertension) Paroxysmal atrial fibrillation Surgical History History of cataract surgery History of tonsillectomy and adenoidectomy Family History Father Hypertension Coronary heart disease Social History Preferred Language: Khmer Traditional Chinese Herbalist Required: No Beliefs That Will Affect Care: Church marital status: / Current Living Situation: Family Current Living Situation Comment: Home Health Feels Safe at Home: Yes Smoking Status: Never smoker Second Hand Exposure: No ; Hx Alcohol Use: No Hx Substance Use: No Results & Data Vital Signs (Past 12 Hours) Vital Signs Temp Pulse Pulse Resp BP Pulse Ox 07/08/19 08:05 69 18 131/78 99 07/08/19 03:07 36.4 C L 69 18 124/81 93 07/07/19 22:56 36.4 C L 65 17 131/70 95 07/07/19 22:21 36.4 C L 68 16 118/70 97 07/07/19 22:20 63 Coding Level of Care Code 97626 Inpt Consult Level 2 Diagnoses Goals of care, counseling/discussion Z71.89 CVA (cerebral vascular accident) I63.9 Congestive heart failure I50.9 Humerus fracture S42.309A Time Spent (min) 50 Time Spent Midlevel A total of 50 minutes spent by this [employer] in reviewing chart, speaking with attending and palliative physicians, and trying to reach family, to discuss condition, goals and plan of care. Attending Spent 30 minutes in addition to the 50 minutes spent by SCOTT Magdaleno for total of 80 minutes with greater than 50% of the time evaluating the patient, collaborating on the unit with attending physician and case management.
[2019-07-08] MEDS ORDERED: POTASSIUM CHLORIDE 20 MEQ TABCR PO ONE (09:15)
[2019-07-08] MEDS: TIMOLOL MALEATE 0.25% OP SOLN 5 ML BTL OPB SCH ×2 (09:21→09:46)
[2019-07-08] MEDS: LOSARTAN POTASSIUM 50 MG TAB PO SCH ×2 (09:42→20:06)
[2019-07-08] MEDS: APIXABAN 2.5 MG TAB PO SCH ×2 (09:43→20:06)
[2019-07-08] MEDS: METOPROLOL TARTRATE 25 MG TAB PO SCH (09:43)
[2019-07-08] MEDS: ASPIRIN 81 MG ECTAB PO SCH (09:45)
[2019-07-08] MEDS: ATORVASTATIN 40 MG TAB PO SCH (09:45)
[2019-07-08] MEDS: ACETAMINOPHEN 325 MG TAB PO PRN (12:04)
--- NOTE | 2019-07-08 17:50 | Cardiology Progress Note ---
Date of Service July 08, 2019 Assessment & Plan (1) Congestive heart failure: (2) Paroxysmal atrial fibrillation: (3) PSVT (paroxysmal supraventricular tachycardia): (4) CVA (cerebral vascular accident): (5) Encephalopathy: Several brief episodes of supraventricular tachycardia noted on telemetry. She has a prior history of this. No prolonged episodes of atrial fibrillation. As I noted in my initial consult, it sounds as if she has had a prolonged course of waxing and waning mentation since her stroke about a month ago. I spoke to the patient's son, Chace briefly on the phone. I will call her other son, Juan Antonio with whom I had spoken the other day. Is difficult to agricultural specialist her prognosis, but impression is that it is poor, home palliative care approach may be appropriate. Subjective Patient a little bit more alert than when I had initially seen her 2 days ago. She had a minimal conversation with me. With my help, she was able to speak briefly to her son Chace on the phone. Physical Exam Physical Exam: Temp Pulse Resp BP Pulse Ox 36.4 C L 64 16 126/76 96 07/08/19 14:53 07/08/19 14:53 07/08/19 14:53 07/08/19 14:53 07/08/19 14:53 Constitutional: Chronically ill in appearance Respiratory: normal respiratory effort, lungs clear to auscultation Cardiovascular: RRR, no murmur, no edema Neurologic: Upper and lower extremity plegia, ongoing cognitive impairment Results & Data Vital Signs (Past 12 Hours) Vital Signs Temp Pulse Pulse Resp BP Pulse Ox 07/08/19 14:53 36.4 C L 64 16 126/76 96 07/08/19 11:48 36.4 C L 67 18 112/74 98 07/08/19 08:05 69 18 131/78 99 07/08/19 07:05 72 Laboratory Results Comprehensive Metabolic Panel 07/08/19 Range/Units 06:37 Sodium 140 (136-145) mmol/L Potassium 3.7 (3.5-5.1) mmol/L Chloride 107 (98-107) mmol/L Carbon Dioxide 26 (21-32) mmol/L BUN 23 H (7-18) mg/dl Creatinine 0.83 (0.6-1.2) mg/dl Glucose 85 (70-99) mg/dl Calcium 9.9 (8.5-10.1) mg/dl Intake and Output 07/08/19 07/08/19 07/08/19 06:59 14:59 22:59 Output Total 150 / 500 100 / 100 Balance -150 / -350 -100 / -100 Output: Urine Amount (Catheter) 150 / 500 100 / 100 Hearn/Indwelling 150 / 500 100 / 100
[2019-07-08] MEDS ORDERED: ACETAMINOPHEN SUSP 325 MG/10.15 ML UDC PO STA (18:54)
[2019-07-08] MEDS ORDERED: GABAPENTIN 100 MG CAP PO SCH (19:00)
[2019-07-08] MEDS ORDERED: POTASSIUM CHLORIDE 20 MEQ TABCR PO STA (19:13)
[2019-07-08] MEDS ORDERED: METOPROLOL TARTRATE 25 MG TAB PO SCH (19:15)
[2019-07-08] MEDS ORDERED: ALBUMIN 25% 50 ML IV ONE ×2 (19:43→21:10)
[2019-07-08] MEDS ORDERED: DIGOXIN 250 MCG in SYRINGE 9 ML IV ONE (20:00)
[2019-07-08] MEDS ORDERED: GABAPENTIN 100 MG CAP PO PRN (20:07)
[2019-07-08] MEDS ORDERED: DIGOXIN 250 MCG in SYRINGE 9 ML IV STA (21:11)
[2019-07-08] MEDS: LORATADINE 10 MG TAB PO ONE (23:06)
[2019-07-09] MEDS: LORATADINE 10 MG TAB PO ONE (01:18)
[2019-07-09 01:28] LABS: Appearance Urine Cloudy (Clear); Bacteria Urine Automated Negative (Negative); Bilirubin Urine Negative (Negative); Blood Urine 3+ (Negative); Cast Urine Automated 0 /lpf (0-5); Color Urine Dark Yellow; Epithelial Cell Urine Auto 20-30 /lpf (0-5); Glucose Urine UA Negative (Negative); Ketones Urine Trace (Negative); Leukocyte Esterase Urine 1+ (Negative); Nitrite Urine Negative (Negative); RBC Urine Automated >30 /hpf (0-4); Specific Gravity Urine 1.021 (1.000-1.030); Urobilinogen Urine Negative (Negative); pH Urine 8.5 (4.5-7.5)
[2019-07-09 01:33] LABS: Protein Urine Negative (Negative); Sulfosalicylic Acid Urine Negative (Negative)
--- NOTE | 2019-07-09 01:56 | Communication Note ---
Date of Service: July 09, 2019 Overnight developments : Decreased responsiveness, rapid A. fib 110-130s, SBP 80s noted after administration of gabapentin last night for leg pain as per RN. Rash noted after second dose of digoxin. CT head initial read: No intracranial hemorrhage mass-effect or edema. Chronic right frontoparietal, temporal infarcts. UA WBC est AP Encephalopathy ? Secondary to gabapentin ? Complicated UTI Hold gabapentin for now and add to allergy/ADR list. Follow urine cultures, IV Cefepime. Will relay to AM provider.
[2019-07-09] MEDS ORDERED: CEFEPIME CONSULT ACTIVE PRN (01:57)
[2019-07-09 02:46] LABS: Basophils # (auto) 0.02 K/uL (0-0.2); Basophils % (auto) 0.3 %; Eosinophils # (auto) 0.79 K/uL (0-0.5); Eosinophils % (auto) 10.5 %; Immature Granulocytes # (auto) 0.01 K/uL (0.00-0.02); Immature Granulocytes % (auto) 0.1 %; Lymphocytes # (auto) 0.67 K/uL (1.2-3.4); Lymphocytes % (auto) 8.9 %; Mean Corpuscular Hemoglobin 33.7 pg (25-34); Mean Corpuscular Hgb Conc 32.6 g/dL (32-36); Mean Corpuscular Volume 103.6 fL (80-100); Mean Platelet Volume 10.4 fL (7.4-10.4); Monocytes # (auto) 0.76 K/uL (0.11-0.59); Monocytes % (auto) 10.1 %; Neutrophils % (auto) 70.1 %; Platelet Count 247 K/uL (130-400); RDW Standard Deviation 60.4 fL (36.4-46.3); Red Blood Count 4.15 M/uL (4.2-5.4); White Blood Count 7.55 K/uL (4.8-10.8)
[2019-07-09 02:48] LABS: Base Excess ABG 1.8 mEq/L (-9-1.8); HCO3 ABG 25 mmol/L (19-24); Oxygen Saturation ABG 94.3 % (90-95); PCO2 ABG 36 mmHg (35-46); PO2 ABG 65 mmHg (80-95); pH ABG 7.46 (7.35-7.45)
[2019-07-09 02:50] LABS: Allen Test POS (Pos)
[2019-07-09 02:55] LABS: Partial Thromboplastin Time 28.7 Seconds (21.0-31.0)
[2019-07-09] MEDS ORDERED: CEFEPIME 2,000 MG in SYRINGE 7.5 ML IV SCH (03:00)
[2019-07-09 03:07] LABS: BUN Creatinine Ratio 26.4 (10-20); Calcium 9.3 mg/dl (8.5-10.1); Creatinine Clr Calc Pharmacy 33.8 ml/min; Est GFR (African American) 76.2; Est GFR (Non-African American) 65.8; Magnesium 2.4 mg/dl (1.8-2.4); Potassium 4.6 mmol/L (3.5-5.1)
[2019-07-09] MEDS ORDERED: DIGOXIN 250 MCG in SYRINGE 9 ML IV STA (04:45)
[2019-07-09] MEDS ORDERED: LORATADINE 10 MG TAB PO ONE (05:11)
[2019-07-09] MEDS ORDERED: ALBUMIN 25% 50 ML IV ONE (05:12)
[2019-07-09] MEDS ORDERED: METOPROLOL TARTRATE 1 MG/ML VIAL IV STA (05:12)
--- NOTE | 2019-07-09 07:05 | CT Scan Report ---
CT head/brain wo con CT DOSE: 614.27 mGy.cm HISTORY: Mental status change ams TECHNIQUE: Multiaxial CT images of the head were performed without the use of intravenous contrast. A dose lowering technique was utilized adhering to the principles of ALARA. Comparison: 07/04/2019 Findings: The paranasal sinuses and mastoid air cells are clear. The calvarium and skull base are int act. The ventricles and sulci are within normal limits. There is no mass, hematoma, midline shift, or acute infarct. Pre-existing right cerebral infarcts are unchanged. Moderate atrophy also unchanged. No evidence for acute intracranial hemorrhage. Impression: No acute intracranial abnormality. Atrophy and microvascular ischemic changes. Pre-existing right cer ebral infarct considered unchanged ACT 112: Negative or not required by law. The above report was generated using voice recognition software. It may contain grammatical, syntax or spelling errors. Electronically signed by: Khoi Page M.D. 07/09/2019 7:04 AM
--- NOTE | 2019-07-09 07:23 | XRay Report ---
XR chest 1V portable CLINICAL HISTORY: apneic episodes COMPARISON STUDY: 07/06/2019 FINDINGS: The cardiac and mediastinal contours are normal. There is no evidence of focal pulmonary co nsolidation. There is no evidence of failure. No pleural effusions are visualized.[There is minimal l eft basilar atelectatic change. There is a healing displaced proximal left humeral fracture. IMPRESSION: No active disease in the chest. ACT 112: Negative or not required by law. Electronically signed by: Ravi Paredes M.D. 07/09/2019 7:22 AM
[2019-07-09] MEDS: ASPIRIN 81 MG ECTAB PO SCH (07:52)
[2019-07-09] MEDS: APIXABAN 2.5 MG TAB PO SCH (07:53)
[2019-07-09] MEDS: LOSARTAN POTASSIUM 50 MG TAB PO SCH (07:53)
[2019-07-09] MEDS: ATORVASTATIN 40 MG TAB PO SCH (07:53)
[2019-07-09] MEDS ORDERED: FUROSEMIDE 20 MG TAB PO SCH (09:00)
--- NOTE | 2019-07-09 09:55 | Discharge Summary ---
Date of Service July 09, 2019 Admission HPI Per Admitting Provider 84-year-old female brought in by EMS for concerns of strokelike symptoms. Apparently the patient was flown to [facility] June 01 for large MCA territory stroke. According to the family the patient had some type of procedure which may be an embolectomy but eventually was sent to rehab at [facility]. During her time at the rehab center she reportedly had problems with volume overload and swelling, low blood sodium, and urinary tract infections. According to the family member the patient return to home on June 30. Since June 30 the patient was complaining of frequent urinations and the family is having difficulty caring for her. Subsequently the family asked for home care nurse to be provided but a hospice nurse showed up instead. Apparently today the hospice nurse felt the patient may be having some anxiety and she was given Ativan. Patient subsequently developed worsening mental state and was difficult to difficult to control at home. The patient suffered a proximal humeral fracture with her stroke in June 01 and she was having difficulty with pain at the site. 911 was summoned and due to the patient's mental changes and recent stroke concerns for recurrent stroke were undertaken. According to the family there was some discussion about where they should go and initially were considering summoning a air transport to the scene. Reportedly whether postponed air ambulance transport and the patient was in route to the airport in [facility] to possibly meet the air ambulance there. As the patient was with concern for stroke and not any is a certified stroke center the patient was then brought to our facility where she was seen in the emergency department. Initial evaluation was nonfocal with exception of her fractured left arm being diminished and movement patient underwent CT scan of her head and a CT angiogram of her head which were unremarkable with exception of her old MCA territory stroke chest x-ray with a mild right okay right lower lobe infiltrate and equivocal urinalysis by straight cath. I phone the family which got her [id number] Bria and she relayed the story to me she also relayed to me that the patient typically sees Dr. Kennedy at [facility] and typically goes to [facility] to see [facility]. The family also confirmed the patient is a DNR they provided the following phone numbers for ease of contact Noemi Romano [phone] alternate [phone] Juan Antonio cell phone [phone] Admission Exam Per Admitting Provider The patient appeared well confused and not following commands Vital signs as documented. She is hypertensive although listed as tachypneic is from agitation Head exam is normocephalic atraumatic no scleral icterus Neck is without JVD, thyromegaly, or carotid bruits. Lungs are clear to auscultation, no focal loss of breath sounds Cardiac exam, Rhythm is regular.. No murmurs, rubs or gallops. Abdominal exam reveals normal bowel sounds, soft non tender, no masses Extremities ecchymosis to the proximal left arm with deformity and decreased mobility Neurologic exam is alert and conversant but not oriented, she has limited use to her left arm Skin is without rashes bruising noted to left upper arm Principal Diagnosis AMS (altered mental status): Encephalopathy: Congestive heart failure: Acute CHF exacerbation Hypokalemia Aspiration pneumonia: Elevated lactic acid level: Elevated troponin: CVA (cerebral vascular accident): Paroxysmal atrial fibrillation: Humerus fracture: HTN (hypertension): Discharge Exam Physical Exam Gen-Somnolent, NAD, Afebrile Head-NCAT, PERRLA, Anicteric Sclera, No Posterior Pharyngeal Erythema Neck-Supple, No JVD, No Thyromegaly, No Masses, No LAD, No Bruits Lungs-Clear to Auscultation Bilaterally, No Rales, No Rhonchi, No Wheezing, No Crepitus Chest-No S4, +S1, +S2, No S3, No Murmurs, No Rubs, No Gallops, No Ectopy Abdomen-Soft, Bowel Sounds Present, Non Tender, Non Distended, No Hepatomegaly, No Splenomegaly, No Palpable Masses, No Rebound, No Rigidity, No Guarding Musculoskeletal-Full Range of Motion Bilaterally, No CVAT Extremities-No Cyanosis, No Clubbing, No Edema Nuero-Cranial Nerves II-XII grossly intact, Motor WNL, DTRs WNL, Strength WNL, Non Focal Psych-Somnolent Discharge Data Allergies Allergy/AdvReac Type Severity Reaction Status Date / Time digoxin Allergy Mild Rash Verified 07/09/19 05:14 gabapentin AdvReac Intermediate lethargy Verified 07/09/19 05:15 Consultations 07/04/19 15:38 ED Decision to Admit Stat 07/04/19 17:14 Consult Case Management - Discharge Planning Routine 07/04/19 20:16 Consult Orthopedic Surgery Routine 07/05/19 07:29 Consult Neurology Routine 07/06/19 08:00 Consult Cardiology Routine 07/07/19 19:55 Consult Palliative Care Routine Ordered Studies 07/04/19 14:09 CT head/brain wo con Stat 07/04/19 14:36 CT angio head w con Stat CT angio neck with con Stat 07/08/19 23:46 CT head/brain wo con Urgent 07/09/19 07/09/19 07/09/19 Range/Units 02:32 02:32 02:32 WBC (4.8-10.8) K/uL RBC (4.2-5.4) M/uL Hgb (12.0-16.0) g/dL Hct (37-47) % MCV (80-100) fL MCH (25-34) pg MCHC (32-36) g/dL RDW Std Deviation (36.4-46.3) fL RDW Coeff of Brii (11.5-14.5) % Plt Count (130-400) K/uL MPV (7.4-10.4) fL Immature Gran % (Auto) % Neut % (Auto) % Lymph % (Auto) % [place] % (Auto) % Eos % (Auto) % Baso % (Auto) % Immature Gran # (Auto) (0.00-0.02) K/uL Neut # (Auto) (1.4-6.5) K/uL Lymph # (Auto) (1.2-3.4) K/uL [place] # (Auto) (0.11-0.59) K/uL Eos # (Auto) (0-0.5) K/uL Baso # (Auto) (0-0.2) K/uL APTT 28.7 (21.0-31.0) Seconds PTT Ratio 1.0 ABG pH 7.46 H (7.35-7.45) ABG pCO2 36 (35-46) mmHg ABG pO2 65 L (80-95) mmHg ABG HCO3 25 H (19-24) mmol/L ABG O2 Saturation 94.3 (90-95) % ABG Base Excess 1.8 (-9-1.8) mEq/L Gaurang Test POS (Pos) Barometric Pressure 736.2 mm/Hg Oxygen Given ROOM AIR Sodium 144 (136-145) mmol/L Potassium 4.6 D (3.5-5.1) mmol/L Chloride 114 H (98-107) mmol/L Carbon Dioxide 23 (21-32) mmol/L Anion Gap 7.0 (3-11) BUN 21 H (7-18) mg/dl Creatinine 0.81 (0.6-1.2) mg/dl Est Cr Clr Drug Dosing 33.8 ml/min Est GFR ( Amer) 76.2 Est GFR (Non-Af Amer) 65.8 BUN/Creatinine Ratio 26.4 H (10-20) Glucose 80 (70-99) mg/dl POC Glucose (70-99) mg/dl Calcium 9.3 (8.5-10.1) mg/dl Magnesium 2.4 (1.8-2.4) mg/dl Urine Color Urine Appearance (Clear) Urine pH (4.5-7.5) Ur Specific [place] (1.000-1.030) Urine Protein (Negative) Urine Glucose (UA) (Negative) Urine Ketones (Negative) Urine Blood (Negative) Urine Nitrite (Negative) Urine Bilirubin (Negative) Urine Urobilinogen (Negative) Ur Leukocyte Esterase (Negative) Urine WBC (Auto) (0-5) /hpf Urine RBC (Auto) (0-4) /hpf U Hyaline Cast (Auto) (0-5) /lpf U Epithel Cells (Auto) (0-5) /lpf Urine Bacteria (Auto) (Negative) 07/09/19 07/09/19 07/08/19 Range/Units 02:32 01:13 23:49 WBC 7.55 (4.8-10.8) K/uL RBC 4.15 L (4.2-5.4) M/uL Hgb 14.0 (12.0-16.0) g/dL Hct 43.0 (37-47) % MCV 103.6 H (80-100) fL MCH 33.7 (25-34) pg MCHC 32.6 (32-36) g/dL RDW Std Deviation 60.4 H (36.4-46.3) fL RDW Coeff of Brii 16.0 H (11.5-14.5) % Plt Count 247 (130-400) K/uL MPV 10.4 (7.4-10.4) fL Immature Gran % (Auto) 0.1 % Neut % (Auto) 70.1 % Lymph % (Auto) 8.9 % [place] % (Auto) 10.1 % Eos % (Auto) 10.5 % Baso % (Auto) 0.3 % Immature Gran # (Auto) 0.01 (0.00-0.02) K/uL Neut # (Auto) 5.30 (1.4-6.5) K/uL Lymph # (Auto) 0.67 L (1.2-3.4) K/uL [place] # (Auto) 0.76 H (0.11-0.59) K/uL Eos # (Auto) 0.79 H (0-0.5) K/uL Baso # (Auto) 0.02 (0-0.2) K/uL APTT (21.0-31.0) Seconds PTT Ratio ABG pH (7.35-7.45) ABG pCO2 (35-46) mmHg ABG pO2 (80-95) mmHg ABG HCO3 (19-24) mmol/L ABG O2 Saturation (90-95) % ABG Base Excess (-9-1.8) mEq/L Gaurang Test (Pos) Barometric Pressure mm/Hg Oxygen Given Sodium (136-145) mmol/L Potassium (3.5-5.1) mmol/L Chloride (98-107) mmol/L Carbon Dioxide (21-32) mmol/L Anion Gap (3-11) BUN (7-18) mg/dl Creatinine (0.6-1.2) mg/dl Est Cr Clr Drug Dosing ml/min Est GFR ( Amer) Est GFR (Non-Af Amer) BUN/Creatinine Ratio (10-20) Glucose (70-99) mg/dl POC Glucose 109 H (70-99) mg/dl Calcium (8.5-10.1) mg/dl Magnesium (1.8-2.4) mg/dl Urine Color Dark Yellow Urine Appearance Cloudy A (Clear) Urine pH 8.5 H (4.5-7.5) Ur Specific [place] 1.021 (1.000-1.030) Urine Protein Negative (Negative) Urine Glucose (UA) Negative (Negative) Urine Ketones Trace H (Negative) Urine Blood 3+ H (Negative) Urine Nitrite Negative (Negative) Urine Bilirubin Negative (Negative) Urine Urobilinogen Negative (Negative) Ur Leukocyte Esterase 1+ H (Negative) Urine WBC (Auto) 10-30 H (0-5) /hpf Urine RBC (Auto) >30 H (0-4) /hpf U Hyaline Cast (Auto) 0 (0-5) /lpf U Epithel Cells (Auto) 20-30 H (0-5) /lpf Urine Bacteria (Auto) Negative (Negative) Hospital Course (1) AMS (altered mental status): (2) Encephalopathy: Pt with reported AMS. It is reported a nurse noted pt to be anxious at home and Ativan was given. Reported pt had altered mental status. Patient presents w/encephalopathy which could be toxic from recent lorazepam use at home according to the family, could be metabolic from aspiration pneumonia or urinary tract infection present on admission as she has had preceding symptoms at home. Patient on Zosyn therapy blood cultures are NGTD and urine cultures +Lactobacillus Sp In ER reported non-focal exam findings, had CT head and a CTA head which were unremarkable with exception of her old MCA territory stroke. CXR: Cardiomegaly with suspected volume overload and congestive change. Bibasilar opacities right greater than left. Bilateral pleural effusions. No leukocytosis, lactate: 2.5, troponin: 0.086, UA trace leuk esterace, >30 WBC without bacteria Was given Rocephin in ER She was started on Zosyn, Lasix 20mg IV x 1 dose DC home on Augmentin x 7 days (3) Congestive heart failure: Acute CHF exacerbation CXR: Cardiomegaly with suspected volume overload and congestive change. Bibasilar opacities right greater than left. Bilateral pleural effusions. Trop. mildly elevated. Received 20 mg IV lasix on admission - diuresed well overnight, pro-BNP obtained after admission, significantly elevated, over 35,000, was given additional 20 mg IV lasix for next couple of days - Echo (07/04) Left ventricle grossly normal in size, mild concentric LVH. LV systolic function moderately reduced, EF 35%. Mid to distal anterior wall apex and inferior apex and septum and anterior septum are akinetic, this is consistent with prior LAD infarct. Left atrium severely dilated. RV systolic pressure elevated at 30-40. Diastolic dysfunction grade 2, consistent with elevated left atrial pressure. pt in sinus rhythm - Cardiology on case - Pt to be d/c 'ed with [facility] and eventual home hospice, d/c on furosemide 20 mg PO as long as she can take PO meds Hypokalemia - secondary to diuretic use (4) Aspiration pneumonia: Reportedly patient has a history of swallowing difficulties at home typically with crushed medications and taking pudding. Right lower lobe changes seen on x-ray Augmentin to cover any infectious etiologies although currently her white blood cell count is low (5) Elevated lactic acid level: - resolved - Multifactorial possibly from infectious or possibly could be from congestive change seen on imaging (6) Elevated troponin: - likely secondary to decompensated HF - treatment as above (7) CVA (cerebral vascular accident): Initial concern for recurrent stroke may have been clouded by administration of lorazepam at home. Patient has no acute stroke seen on initial imaging nor aneurysm or occlusion seen on angiogram. Pt with recent acute ischemic right MCA stroke on 06/02/2019 and received TPA and was transferred to [facility]. At [facility] she had thrombectomy of right M2 occlusion. Pt on pureed diet, thin liquids, requires pills to be crushed -CT and CTA obtained on this admission - no new CVA -discussed with Dr. Moss (neurology), likely no benefit from more imaging such as MRI -cont. aspirin, eliquis, atorvastatin -aspiration precautions, Home Health +-Hospice (8) Paroxysmal atrial fibrillation: Developed atrial fibrillation post op in 05/2019 Current sinus rhythm -Eliquis, metoprolol tartrate - discussed w/cardiology, even when pt leaves on hospice would recommend to cont. Eliquis as long as she is safe to take her home med (9) Humerus fracture: Reportedly sustained a proximal left humeral fracture with her stroke on June 01. Will provide a sling. Orthopedics consulted - recommend to follow-up as outpatient, currently no inpatient procedures planned (10) HTN (hypertension): - cont. metoprolol 25 BID and losartan 50 daily (11) DVT prophylaxis: - cont. home Eliquis 2.5 twice daily Burning sensation in pt's feet - likely secondary to neuropathy / PVD - gabapentin TID prn - also continue liquid tylenol for pain/discomfort as pt seems to respond well to that (12) Goals of care, counseling/discussion: Dr Mejia had a prolonged discussion with pt's PARISA Fraser on 07/07. She updated her on current clinical progress and also reviewed her prior hospital admissions. Family does not wish to keep coming back to the hospital and is interested in possible hospice care. Palliative medicine is on case and recs home c [facility]--->transition to Hospice. From Pall Note-At this time, we are recommending patient go home with / care and home health. Per case management's note, the family chose [facility] for their HH agency--they also have an excellent hospice program. Patient can transition to hospice if she plateaus or worsens at home, or if she continues to have medical issues causing deteriorating condition. The agnecy could easily have a air liaison and special staff come into the patient's home to speak with family together so they can learn more about hospice and their philosophy. Total Time Total Time Spent Total Time Spent (In Minutes): 45 mins Total Time Includes: Examination of the Patient, Discharge Planning, Medication Reconciliation and Communication With Other Providers Discharge Plan Discharge Items Patient Disposition: Home - Home Health Services Reason For Visit: ENCEPHALOPATHY Discharge Diagnosis: AMS (altered mental status): Encephalopathy: Congestive heart failure: Acute CHF exacerbation Hypokalemia Aspiration pneumonia: Elevated lactic acid level: Elevated troponin: CVA (cerebral vascular accident): Paroxysmal atrial fibrillation: Humerus fracture: HTN (hypertension): Condition on Discharge: Fair Health Concerns: Further decline Goals: Home Health and Possible Hospice Transition at home Activity: Per Instructions section Activity Comment: As tolerated Lifting: None Bathing: No limitations Exercise/Sports: None Driving/Machine Use: None Weightbearing Comment: As tolerated Non-emergency contact: Primary Care Provider Call non-emergency contact if: you have any medication questions Follow-up/Referrals: [facility],Home Healthcare [Non-Staff] - PCP,NO [Primary Care Provider] - Dietitian Info: Provide Diet recommended by Speech Therapy Diet: Other - See Diet Comment Addtl Attending Provider Instructions: Home Health and Possible Hospice eval Pending Studies at Discharge: No Stand-Alone Forms: My [employer], Smoking Cessation Medications and DC Order Prescriptions: New furosemide 20 mg Tablet 20 mg PO QAM Qty: 30 RF: 0 gabapentin 100 mg Capsule 100 mg PO TID Qty: 90 RF: 0 amoxicillin-pot clavulanate [Augmentin] 250-62.5 mg/5 mL suspension for reconstitution 30 ml PO BID 7 Days Qty: 420 RF: 0 Continued losartan 50 mg tablet 50 mg PO BID RF: 0 aspirin 81 mg Tablet,Delayed Release (Dr/Ec) 81 mg PO QAM RF: 0 timolol maleate 0.5 % drops 1 drp OPB QAM RF: 0 metoprolol tartrate 25 mg tablet 25 mg PO BID RF: 0 Eliquis 2.5 mg tablet 2.5 mg PO BID RF: 0 atorvastatin 40 mg tablet 40 mg PO DAILY RF: 0 Systane (PF) 0.4-0.3 % Dropperette 1 drp OPHTHALMIC (EYE) BID PRN (Reason: Dry Eye(S)) RF: 0 Discharge Orders: Discharge Order (Routine); Ordered 07/09/19 Ordered By: Sheldon Arana Admission Data Admit Date/Time: 07/04/19 16:05 Attending Provider: Sheldon Arana Admit Provider: Mariah Tovar Primary Care Provider: PCP,NO Other Providers: Joe Greene ; Little Garza ; Mele Moss ; [facility],Home Healthcare ; Dayton Verduzco ; Sukh Patel ; Erna Kaminski
--- NOTE | 2019-08-07 06:34 | Coding Query ---
CODING QUERY To promote full compliance with coding requirements relating to patient care, provider participation is requested in all cases of icd 9 coder uncertainty. Please assist us with the question(s) below: Coding Question(s): Please clarify etiology of encephalopathy. X Toxic Sec to Ativan ( ) Metabolic ( ) Other Physician's Response(s): Thank you Lacie Pena Principal Diagnosis: "that condition established after study, to be chiefly responsible for occasioning the admission of the patient to the hospital for care." Co-Existing Principal Diagnosis: "when two or more diagnoses equally meet the criteria for principal diagnosis as determined by the circumstances of admission, diagnostic work up, and/or therapy provided, and the Alphabetic Index, Tabular List, or another coding guideline does not provide sequencing direction, any one of the diagnoses may be sequenced first." "When the physician has documented what appears to be a current diagnosis in the body of the record, but has not included the diagnosis in the final diagnostic statement, the physician should be asked whether the diagnosis should be added." (Source Coding Clinic 2 QTR90. p3-4) MARICRUZ
== END 2019-07-09 16:46 | disposition hospice, home (50) | DRG 91 ==
LOC: ED 14:05 → SUATTDRO 16:05 → 2N 16:05